=== PATIENT | male | born 1955 | race Caucasian/White ===

== ENCOUNTER 2020-01-09 18:59 | Inpatient (IN) ==
--- NOTE | 2020-01-09 19:13 | DR.GENAD ---
HPI - Complaint/Symptoms Chief Complaint Doctors Comments: Family member states patient was disorientated at home and did not know his grand childrens, his birthday nor the development vice president about an hour ago but he has gotten better since coming to the emergency room. Patient states he has had problems remembering but denies headache, dizziness, SOB or chest pain. Family member states his blood pressure has been elevated today and he has been taking his blood pressure medicines. He states he is taking Lisinopril. States he is a patient of Caitlin Dunn. He denies tobacco, alcohol or drug usage. He had stage 4 throat cancer in 2013 and now he is cancer free according to patient and family member. He denies any recent trauma. state he had breakfast today. He denies cold, cough, fever or chills. Patient denies problems with his balance. - COVID-19 Coronavirus risk:travel/contact w/high risk person: No Has patient experienced Coronavirus symptoms: No - Nurses notes reviewed Nurses Notes Review: Yes - Source History Provided: Patient, Family Member - Mode of Arrival Mode of Arrival: Wheelchair - Timing Came on: Suddenly - Duration Duration: Constant How lon Duration: Hours - Location Location: disorientate - Severity Severity: Moderate - Modifying Factors Worsens:: nothing Improves:: nothing PMH - PMH Past Medical History: Hypertension, Hypothyroidism Past Surgical History: Yes - Social History Do you use any recreational Drugs:: No ROS - Review of Systems Constitutional: No Symptoms Reported Eyes: No Symptoms Reported, Blurred Vision ENTM: No Symptoms Reported Respiratoy: No Symptoms Reported, Short of Breath Cardiovascular: No Symptoms Reported. negative: See HPI, Chest Pain, Edema, Palpitations, Syncope, Cyanosis, Skin Mottling, Other Gastrointestinal/Abdominal: No Symptoms Reported. negative: See HPI, Abdominal Pain, Constipation, Diarrhea, Nausea, Vomiting, Food Intolerance, Other Genitourinary: No Symptoms Reported. negative: See HPI, Discharge, Dysuria, Frequency, Hematuria, Pain, Bleeding, Other Neurological: No Symptoms Reported, Dizziness. negative: See HPI, Anxiety, Depressed, Emotional Problems, Headache, Numbness, Paresthesia, Pre-existing Deficit, Seizure, Tingling, Tremors, Weakness, Problems Walking, Speech Problem, Other Musculoskeletal: No Symptoms Reported Integumentary: No Symptoms Reported Hematologic/Lymphatic: No Symptoms Reported. negative: See HPI, Anemia, Blood Clots, Easy Bleeding, Easy Bruising, Swollen Glands, Lymphadenopathy, Other Endocrine: No Symptoms Reported Psychiatric: No Symptoms Reported. negative: See HPI, Anxiety, Depression, Hallucinations, Excessive crying, Suicidal, Other PE - General Limitations: No Limitations General Appearance: Alert, In No Apparent Distress - Head Head Exam: Normal Inspection, Atraumatic, Normocephalic - Eyes Eye exam: Normal Appearance, PERRL, EOMI. negative: Scleral Icterus, Conjunctival Injection, Nystagmus, Miosis, Mydrasis, Periorbital Swelling, Periorbital Tenderness, Other - ENT ENT Exam: Normal Exam, Normal Oropharynx, Normal External Ear Exam, Mucous Membranes Moist, TM's Normal Bilaterally External Ear Exam: Normal External Inspection TM/Canal Exam: Bilateral Normal Nose Exam: Normal Nose Exam Mouth Exam: Normal Inspection. negative: Drooling, Trismus, Lip Swelling, Tongue Elevation, Tongue Swelling, Laceration, Other Throat Exam: Normal Inspection. negative: Tonsillar Erythema, Tonsillomegaly, Tonsillar Exudate, R Peritonsillar Mass, L Peritonsillar Mass, Muffled Voice, O ther - Neck Neck Exam: Normal Inspection, Full ROM (multiple hard nodule in hyoid area; no erythema or tenderness), Trachea Midline. negative: Tenderness, Meningismus, Lymphadenopathy, Thyromegaly, Other - Chest Chest Inspection: Normal Inspection, Symmetric Chest Wall Rise. negative: Tenderness, Rash, Abscess, Other - Respiratory Respiratory Exam: Normal Lung Sounds Bilat Respiratory Exam: Bilateral Clear to Auscultation, Bilateral Decreased Breath So unds - Cardiovascular Cardiovascular Exam: Regular Rate, Normal Rhythm, Normal Heart Sounds - Abdominal Exam Abdominal Exam: Normal Inspection, Normal Bowel Sounds, Soft. negative: Distention, Tenderness, Guarding, Rebound, Rigidity, Dimnished Bowel Sounds, Hyperactive Bowel Sounds, Hypoactive Bowel Sounds, Organomegaly, Trauma, Incision, Ascites, Mass, Bruit, Pulsatile Mass, Hernia, Other Abdominal Tenderness: negative: RUQ, RLQ, LUQ, LLQ, Epigastrium, Suprapubic, Diffuse, Mild, Moderate, Severe, Other - Extremities Extremities Exam: Normal Inspection, Full ROM, Normal Capillary Refill. negative: Tenderness, Edema, Joint Swelling, Calf Tenderness, Other - Back Back Exam: Normal Inspection, Full ROM. negative: Tenderness, (R) CVA Tenderness, (L) CVA Tenderness, Muscle Spasm, Paraspinal Tenderness, Vertebral Tenderness, Rashes, (R) Sciatic Notch Tenderness, (L) Sciatic Notch Tendern, (R) Straight Leg Raise, (L) Straight Leg Raise, Other - Neurologic Neurological Exam: Alert, Oriented X3, CN II-XII Intact, Normal Gait, Reflexes Normal. negative: Motor Sensory Deficit (tongue protrudes to the left) - Psychiatric Psychiatric Exam: Normal Affect, Normal Mood. negative: Depressed, Agitated, Anxious, Flat Affect, Manic, Homicidal Ideation, Suicidal Ideation, Other - Skin Skin Exam: Warm, Dry, Intact, Normal Color. negative: Rash, Cyanosis, Diaphoresis, Erythema, Pallor, Mottled, Other - Vital Signs Vitals: Temperature 97.0 F Pulse Rate [Right] 62 Pulse Rate 55 Respiratory Rate 22 Blood Pressure [Left Arm] 212/98 Blood Pressure 150/70 O2 Sat by Pulse Oximetry 97 Course - Reevaluation 1st: Improved - Consultation Called: 00:48 Call Returned: 00:48 (Dr. Scott to admit) - Education/Counseling Education/Counseling: Patient, Family Educated On: Treatment, Diagnosis, Needs for Follow Up ROR - Labs Reviewed Laboratory Results Reviewed?: Yes (All labs and x-ray results reviewed and discussed with patient) Result Diagrams: 01/09/20 20:00 01/09/20 20:00 - XRAY XRAY Interpreted by: Radiologist (CT head: No acute intracranial abnormaity. Age related atropic changes and patchy areas of chronic small vessel ischemia are present in a periventriculaar white matter distribution.) - EKG Rate: 74 Jackson: Normal Rhythm: NSR Hypertrophy: LVH ST: Nonsp - Labs Reviewed Laboratory: WBC 7.4 X10^3/uL (3.6-10.0) 01/09/20 20:00 RBC 4.88 X10^6/uL (4.7-6.0) 01/09/20 20:00 Hgb 15.3 g/dL (13.5-18.0) 01/09/20 20:00 Hct 44.7 % (42.0-54.0) 01/09/20 20:00 MCV 91.5 fL (80.0-100.0) 01/09/20 20:00 MCH 31.3 pg (27.0-34.0) 01/09/20 20:00 MCHC 34.2 g/dL (33.0-35.0) 01/09/20 20:00 RDW 14.0 % (11.6-16.5) 01/09/20 20:00 Plt Count 214 X10^3/uL (150.0-450.0) 01/09/20 20:00 MPV 6.8 fL (7.4-11.0) L 01/09/20 20:00 Neut % (Auto) 84.4 % (42.0-75.0) H 01/09/20 20:00 Lymph % (Auto) 6.8 % (21.0-51.0) L 01/09/20 20:00 [place] % (Auto) 7.9 % (0.0-13.0) 01/09/20 20:00 Eos % (Auto) 0.7 % (0.9-2.9) L 01/09/20 20:00 Baso % (Auto) 0.2 % (0.2-1.0) 01/09/20 20:00 Neut # (Auto) 6.3 x10^3/uL (2.2-4.8) H 01/09/20 20:00 Lymph # (Auto) 0.5 X10^3/uL (1.3-2.9) L 01/09/20 20:00 [place] # (Auto) 0.6 x10^3/uL (0.3-0.8) 01/09/20 20:00 Eos # (Auto) 0.0 x10^3/uL (0.0-0.2) 01/09/20 20:00 Baso # (Auto) 0.0 X10^3/uL (0.0-0.1) 01/09/20 20:00 Absolute Nucleated RBC 0.0 /100WBC 01/09/20 20:00 PT 12.1 SECONDS (11.8-14.3) 01/09/20 20:00 INR Target Range - 01/09/20 20:00 INR 0.92 (0.8-1.3) 01/09/20 20:00 APTT 29.5 SECONDS (22.9-36.5) 01/09/20 20:00 PTT Comment - 01/09/20 20:00 Sodium 127 mmol/L (136-145) L 01/09/20 20:00 Corrected Sodium TNP 01/09/20 20:00 Potassium 4.3 mmol/L (3.5-5.1) 01/09/20 20:00 Chloride 92 mmol/L (98-107) L 01/09/20 20:00 Carbon Dioxide 30.6 mmol/L (21-32) 01/09/20 20:00 BUN 15 mg/dL (7-18) 01/09/20 20:00 Creatinine 1.46 mg/dL (0.70-1.30) H 01/09/20 20:00 Est GFR (MDRD) Af Amer > 60 (>60) 01/09/20 20:00 Est GFR (MDRD) Non-Af 51 (>60) L 01/09/20 20:00 Glucose 98 mg/dL (65-99) 01/09/20 20:00 Calcium 9.7 mg/dL (8.5-10.1) 01/09/20 20:00 Corrected Calcium TNP 01/09/20 20:00 Magnesium 1.9 mg/dL (1.7-2.9) 01/09/20 20:00 Total Bilirubin 0.40 mg/dL (0.2-1.0) 01/09/20 20:00 AST 24 Units/L (15-37) 01/09/20 20:00 ALT 27 Units/L (12-78) 01/09/20 20:00 Alkaline Phosphatase 66 Units/L (46-116) 01/09/20 20:00 Creatine Kinase 81 Units/L (39-308) 01/09/20 20:00 CK-MB (CK-2) 2.0 ng/mL (0-4.0) 01/09/20 20:00 CK/CKMB % Calc 2.5 % (<4) 01/09/20 20:00 Troponin I < 0.02 ng/mL (0-1.5) 01/09/20 20:00 Total Protein 7.9 g/dL (6.4-8.2) 01/09/20 20:00 Albumin 3.9 g/dL (3.4-5.0) 01/09/20 20: Globulin 4.0 g/dL (2.5-4.5) 01/09/20 20:00 Albumin/Globulin Ratio 1.0 Ratio (1.1-2.1) L 01/09/20 20:00 Specimen Type Clean catch urine 01/09/20 20:13 Urine Color Yellow (YELLOW) 01/09/20 20:13 Urine Appearance Clear (CLEAR) 01/09/20 20:13 Urine pH 7.0 (5.0 - 8.0) 01/09/20 20:13 Ur Specific [place] 1.010 (1.000-1.030) 01/09/20 20:13 Urine Protein Negative (NEGATIVE) 01/09/20 20:13 Urine Glucose (UA) Negative (NEGATIVE) 01/09/20 20: Urine Ketones Negative (NEGATIVE) 01/09/20 20: Urine Occult Blood Negative (NEGATIVE) 01/09/20 20:13 Urine Nitrite Negative (NEGATIVE) 01/09/20 20:13 Urine Bilirubin Negative (NEGATIVE) 01/09/20 20:13 Urine Urobilinogen Normal (NORMAL) 01/09/20 20:13 Ur Leukocyte Esterase Negative (NEGATIVE) 01/09/20 20:13 Urine Opiates Screen Negative (NEG=<300) 01/09/20 20:13 Urine Methadone Screen Negative (NEG=<300) 01/09/20 20:13 Ur Barbiturates Screen Negative (NEG=<200) 01/09/20 20:13 Ur Phencyclidine Scrn Negative (NEG=<25) 01/09/20 20:13 Ur Amphetamines Screen Negative (NEG=<1000) 01/09/20 20: U Benzodiazepines Scrn Negative (NEG=<200) 01/09/20 20:13 Urine Cocaine Screen Negative (NEG=<300) 01/09/20 20: U Marijuana (THC) Screen Negative (NEG=<50) 01/09/20 20: - XRAY Xray Findings: CXR: No evidence of acute cardiopulmonary abnormality. COPD. (ALEX NICHOLS) Opioid - Opioid Risk Tool Age (Tayo box if 16-45): No History of Preadolescent Sexual Abuse: No Total: 0 Total Score Risk Category: Low Risk - Diagnosis Discharge Problem: Hyponatremia, Accelerated hypertension, Chronic kidney disease (CKD), Abnormal EKG Altered mental status Qualifiers: Altered mental status type: transient alteration of awareness Qualified Code(s): R40.4 - Transient alteration of awareness COPD (chronic obstructive pulmonary disease) Qualifiers: COPD type: unspecified COPD Qualified Code(s): J44.9 - Chronic obstructive pulmonary disease, unspecified - Discharge Plan Disposition: 09 ADMITTED INPATIENT Condition: Stable - Follow ups/Referrals Follow ups/Referrals: NFD,None [Primary Care Provider] - 3 days - Instructions
[2020-01-09] MEDS ORDERED: CATAPRES TAB 0.2 MG ONE (19:30)
[2020-01-09] MEDS: CATAPRES TAB 0.2 MG PO ONE (19:30)
--- NOTE | 2020-01-09 20:06 | CT ---
[id number] male with altered mental statusSTUDYHead CT without contrastCOMPARISONNoneTECHNIQUEAxial imaging was performed from the vertex to the base of skull without intravenous contrast being administered. Sagittal and coronal reformations were generated. Automated exposure control techniques were used with this exam.FINDINGSGeneralized age related atrophic changes are present. However there is no evidence of intracranial hemorrhage or extracerebral fluid collections. Ventricles are symmetric in size and position with no mass effect seen. Patchy areas of low density are present in a periventricular white matter distribution, consistent with chronic small vessel ischemia. On the bone windows, no acute bony abnormality is seen. Visualized aspect of the paranasal sinuses and mastoid air cells are clear.IMPRESSION1. No acute intracranial abnormality is seen on this exam.2. Age related atrophic changes and patchy areas of chronic small vessel ischemia are present in a periventricular white matter distribution.Electronically signed by: LAURI OCHOA (Jan 09, 2020 20:05:52)
--- NOTE | 2020-01-09 20:10 | RAD ---
HISTORYCHEST PAIN, DISORIENTEDSTUDYCHEST, 1 VIEWCOMPARISONNone.FINDINGSThe trachea is midline. The cardiac silhouette is unremarkable. There appear to be some changes of COPD in both lungs. The lungs are clear of consolidation, focal infiltrate, effusion or pneumothorax. The bony thorax is unremarkable.IMPRESSION1. No evidence of acute cardiopulmonary abnormality.2. COPD.Electronically signed by: SID ROSALES (Jan 09, 2020 20:09:18)
[2020-01-09 20:17] LABS: BASOPHILS % (AUTO) 0.2 % (0.2-1.0); EOSINOPHILS % (AUTO) 0.7 % (0.9-2.9); HEMATOCRIT 44.7 % (42.0-54.0); HEMOGLOBIN 15.3 g/dL (13.5-18.0); LYMPHOCYTES # (AUTO) 0.5 X10^3/uL (1.3-2.9); LYMPHOCYTES % (AUTO) 6.8 % (21.0-51.0); MEAN CORPUSCULAR HEMOGLOBIN 31.3 pg (27.0-34.0); MEAN CORPUSCULAR HGB CONC 34.2 g/dL (33.0-35.0); MEAN CORPUSCULAR VOLUME 91.5 fL (80.0-100.0); MEAN PLATELET VOLUME 6.8 fL (7.4-11.0); MONOCYTES # (AUTO) 0.6 x10^3/uL (0.3-0.8); MONOCYTES % (AUTO) 7.9 % (0.0-13.0); NEUTROPHILS # (AUTO) 6.3 x10^3/uL (2.2-4.8); NEUTROPHILS % (AUTO) 84.4 % (42.0-75.0); PLATELET COUNT 214 X10^3/uL (150.0-450.0); RED BLOOD COUNT 4.88 X10^6/uL (4.7-6.0); WHITE BLOOD COUNT 7.4 X10^3/uL (3.6-10.0)
[2020-01-09 20:22] LABS: BILIRUBIN,URINE NEGATIVE (NEGATIVE); BLOOD/HEMOGLOBIN,URINE NEGATIVE (NEGATIVE); GLUCOSE, URINE NEGATIVE (NEGATIVE); KETONES,URINE NEGATIVE (NEGATIVE); LEUKOCYTE ESTERASE ,URINE NEGATIVE (NEGATIVE); NITRITES,URINE NEGATIVE (NEGATIVE); PROTEIN,URINE NEGATIVE (NEGATIVE); UROBILINOGEN,URINE NORMAL (NORMAL)
[2020-01-09 20:23] LABS: APPEARANCE,URINE CLEAR (CLEAR); COLOR,URINE YELLOW (YELLOW)
[2020-01-09 20:32] LABS: BLOOD UREA NITROGEN 15 mg/dL (7-18); CALCIUM 9.7 mg/dL (8.5-10.1); CARBON DIOXIDE 30.6 mmol/L (21-32); CHLORIDE 92 mmol/L (98-107); CREATININE 1.46 mg/dL (0.70-1.30); SODIUM 127 mmol/L (136-145); TROPONIN I < 0.02 ng/mL (0-1.5); eGFR NON BLACK RACES 51 (>60)
[2020-01-09 20:37] LABS: ALANINE AMINOTRANSFERASE 27 Units/L (12-78); ALBUMIN 3.9 g/dL (3.4-5.0); ALKALINE PHOSPHATASE 66 Units/L (46-116); ASPARTATE AMINO TRANSFERASE 24 Units/L (15-37); CKMB % 2.5 % (<4); CREATINE KINASE 81 Units/L (39-308); MAGNESIUM 1.9 mg/dL (1.7-2.9); TOTAL PROTEIN 7.9 g/dL (6.4-8.2)
[2020-01-09] MEDS ORDERED: LASIX ONE (20:38)
[2020-01-09] MEDS ORDERED: LASIX IVP ONE (20:46)
[2020-01-09] MEDS ORDERED: NS 1000 ML 1,000 ML ONE (21:11)
[2020-01-09] MEDS: NS 1000 ML 1,000 ML IV SCH (21:15)
[2020-01-10 01:47] LABS: CKMB % 2.6 % (<4); CREATINE KINASE 69 Units/L (39-308); CREATINE KINASE MB 1.8 ng/mL (0-4.0); TROPONIN I < 0.02 ng/mL (0-1.5)
[2020-01-10 03:37] VITALS: BMI 25.4
[2020-01-10 07:52] LABS: ALANINE AMINOTRANSFERASE 24 Units/L (12-78); ALBUMIN 3.2 g/dL (3.4-5.0); ALKALINE PHOSPHATASE 54 Units/L (46-116); ASPARTATE AMINO TRANSFERASE 20 Units/L (15-37); BLOOD UREA NITROGEN 15 mg/dL (7-18); CALCIUM 8.9 mg/dL (8.5-10.1); CARBON DIOXIDE 26.4 mmol/L (21-32); CHLORIDE 96 mmol/L (98-107); CHOL/HDL RATIO 3.3 (0.0-5.0); CHOLESTEROL 209 mg/dL (0-200); CKMB % 2.8 % (<4); COR CA(FOR HYPOALB) 9.5 mg/dL (8.5-10.1); CREATINE KINASE 76 Units/L (39-308); CREATINE KINASE MB 2.1 ng/mL (0-4.0); CREATININE 1.29 mg/dL (0.70-1.30); HDL CHOLESTEROL 63 mg/dL (40-60); SODIUM 130 mmol/L (136-145); TOTAL PROTEIN 6.8 g/dL (6.4-8.2); TRIGLYCERIDES 84 mg/dL (0-150); TROPONIN I < 0.02 ng/mL (0-1.5); eGFR NON BLACK RACES 59 (>60)
[2020-01-10] MEDS ORDERED: ZESTRIL TAB 20 MG ONE (08:16)
[2020-01-10] MEDS: ELIQUIS PO SCH ×2 (08:25→20:06)
[2020-01-10] MEDS: PEPCID 20 MG IV PREMIX* 20 MG/50 ML BAG IV SCH (08:25)
[2020-01-10] MEDS: ZESTRIL TAB 20 MG PO SCH (08:26)
[2020-01-10] MEDS: NS 1000 ML 1,000 ML IV SCH (11:11)
[2020-01-10 13:36] LABS: CKMB % 2.1 % (<4); CREATINE KINASE 76 Units/L (39-308); CREATINE KINASE MB 1.6 ng/mL (0-4.0); TROPONIN I < 0.02 ng/mL (0-1.5)
--- NOTE | 2020-01-10 22:05 | DR.H&P ---
H&P - History & Physical for Day of: H&P Date: 01/10/20 - Chief Complaint Chief Complaint: AMS, ELEVATED BLOOD PRESSURE - History of Present Illness History of Present Illness: IS A 64 YEAR OLD PATIENT OF [facility] WHO PRESENTED TO THE ER WITH FAMILY REPORTING THAT PATIENT HAS HAD ALTERED MENTAL STATUS AND ELEVATED BLOOD PRESSURE. THEY REPORT THAT HE HAS TAKEN HIS LISINOPRIL DIRECTED, HOWEVER, BLOOD PRESSURE REMAINS ELEVATED. HE DENIES RECENT TRAUMA, COLD, COUGH, FEVER, CHILLS, DIZZINESS, HEADACHE, CHEST PAIN, OR SHORTNESS OF BREATH. PMH INCLUDES HYPERTENSION, COPD, HYPOTHYROIDISM, A-FIB, STAGE THROAT CANCER IN 2012, AND A TONSILLECTOMY. ON ARRIVAL TO THE ER, VITALS WERE 97.0-76-20-100%-222/105. LABS WERE OBTAINED. ABNORMAL LAB VALUES INCLUDE THE FOLLOWING: SODIUM 127, CHLORIDE 92, CREATININE 1.46. CARDIAC ENZYMES WITHIN NORMAL LEVELS. URINALYSIS AND TOXICOLOGY ARE UNREMARKABLE. A CHEST XRAY WAS OBTAINED AND REVEALED: 1. No evidence of acute cardiopulmonary abnormality. 2. COPD. A BRAIN CT WAS OBTAINED AND REVEALED: 1. No acute intracranial abnormality is seen on this exam. 2. Age related atrophic changes and patchy areas of chronic small vessel ischemia are present in a periventricular white matter distribution. EKG REVEALED: SINUS RHYTHM WITH HR 74. HE WAS GIVEN LASIX 20MG IV X 1 DOSE AND CATAPRES 0.2MG PO X 1 IN THE ER. BLOOD PRESSURE DECREASED TO 131/70 PRIOR TO ADMISSION. HE WAS ADMITTED FOR FURTHER EVALUATION AND TREATMENT OF SEVERE HYPONATREMIA, ACCELERATED HYPERTENSION, AND ALTERED MENTAL STATUS. HE WAS STARTED ON NORMAL SALINE AT 80 ML/HR, LISINOPRIL 20MG PO DAILY, PEPCID 20MG IV DAILY, AND ELIQUIS 5MG PO BID. WE WILL CONTINUE WITH CURRENT PLAN OF CARE TODAY. OTHERWISE, WE PLAN TO FOLLOW UP WITH AM LABS AND CONTINUE TO MONITOR. - Past Medical History Past Medical History: COPD, Hypertension, Hypothyroidism Additional Medical History: A-FIB, THROAT CANCER - Past Surgical History Surgical History: Tonsillectomy - Social History Does patient currently use any type of tobacco product: No Have you used tobacco products in the last 12 months: No Type of Tobacco Use: None Does any household member use tobacco: No Alcohol Use: None Drug Use: None - Medications Home Medications: No Known Drug Allergies Allergy (Verified 10/09/19 20:04) CONTINUE taking the following medications apixaban [Eliquis] 5 mg PO BID 01/09/20 [History] levothyroxine 50 mcg PO DAILY 01/09/20 [History] lisinopril [Zestril] 10 mg PO DAILY 01/09/20 [History] - Review of Systems Constitutional: Weakness Eyes: No Symptoms Reported ENT: No Symptoms Reported Respiratory: No Symptoms Reported Cardiovascular: No Symptoms Reported Genitourinary: No Symptoms Reported Musculoskeletal: No Symptoms Reported Skin: No Symptoms Reported Neurological: Weakness, Confusion - Physical Exam Vital Signs: Temperature 97.8 F Pulse Rate [Right] 53 Pulse Rate 55 Respiratory Rate 18 Blood Pressure [Right Arm] 111/59 Blood Pressure [Left Arm] 212/98 Blood Pressure 150/70 O2 Sat by Pulse Oximetry 99 Oriented: Not Oriented Eyes: Normal Ear: Normal Nose: Normal Throat: Normal Respiratory: Diminished Throughout Cardiovascular: Normal : Normal Auscultation: Bowel Sounds: Normal Palpation: Normal Tenderness: Normal Skin: Normal Musculoskeletal: Normal Psychiatric: Normal Mood Description: Calm Affect: Normal Speech Pattern: Clear - Assessment/Plan (1) Hyponatremia Status: Acute Plan: ADMIT, NORMAL SALINE AT 80 ML/HR, LISINOPRIL 20MG PO DAILY, PEPCID 20MG IV DAILY, AND ELIQUIS 5MG PO BID (2) Accelerated hypertension Status: Acute (3) Altered mental status Qualifiers: Altered mental status type: transient alteration of awareness Qualified Code(s): R40.4 - Transient alteration of awareness Status: Acute - Allergies Allergies/Adverse Reactions: Allergies Allergy/AdvReac Type Severity Reaction Status Date / Time No Known Drug Allergies Allergy Verified 10/09/19 20:04
[2020-01-11] MEDS: NS 1000 ML 1,000 ML IV SCH (00:33)
[2020-01-11 06:02] LABS: BASOPHILS % (AUTO) 0.2 % (0.2-1.0); EOSINOPHILS # (AUTO) 0.1 x10^3/uL (0.0-0.2); EOSINOPHILS % (AUTO) 1.5 % (0.9-2.9); HEMATOCRIT 42.4 % (42.0-54.0); HEMOGLOBIN 14.5 g/dL (13.5-18.0); LYMPHOCYTES # (AUTO) 0.5 X10^3/uL (1.3-2.9); LYMPHOCYTES % (AUTO) 9.3 % (21.0-51.0); MEAN CORPUSCULAR HEMOGLOBIN 31.3 pg (27.0-34.0); MEAN CORPUSCULAR HGB CONC 34.1 g/dL (33.0-35.0); MEAN CORPUSCULAR VOLUME 91.7 fL (80.0-100.0); MONOCYTES # (AUTO) 0.5 x10^3/uL (0.3-0.8); MONOCYTES % (AUTO) 8.4 % (0.0-13.0); NEUTROPHILS # (AUTO) 4.6 x10^3/uL (2.2-4.8); NEUTROPHILS % (AUTO) 80.6 % (42.0-75.0); PLATELET COUNT 189 X10^3/uL (150.0-450.0); RED BLOOD COUNT 4.62 X10^6/uL (4.7-6.0); RED CELL DISTRIBUTION WIDTH 13.7 % (11.6-16.5); WHITE BLOOD COUNT 5.7 X10^3/uL (3.6-10.0)
[2020-01-11 06:15] LABS: ALANINE AMINOTRANSFERASE 22 Units/L (12-78); ALBUMIN 3.3 g/dL (3.4-5.0); ALKALINE PHOSPHATASE 56 Units/L (46-116); ASPARTATE AMINO TRANSFERASE 22 Units/L (15-37); BLOOD UREA NITROGEN 16 mg/dL (7-18); CALCIUM 9.2 mg/dL (8.5-10.1); CARBON DIOXIDE 27.1 mmol/L (21-32); CHLORIDE 101 mmol/L (98-107); COR CA(FOR HYPOALB) 9.8 mg/dL (8.5-10.1); SODIUM 133 mmol/L (136-145); eGFR NON BLACK RACES 59 (>60)
[2020-01-11] MEDS ORDERED: ZESTRIL TAB 20 MG ONE (08:43)
[2020-01-11] MEDS: ELIQUIS PO SCH (08:45)
[2020-01-11] MEDS: PEPCID 20 MG IV PREMIX* 20 MG/50 ML BAG IV SCH (08:45)
[2020-01-11] MEDS: ZESTRIL TAB 20 MG PO SCH (08:46)
[2020-01-11 09:23] VITALS: BP 189/82
[2020-01-11] MEDS ORDERED: CATAPRES TAB 0.2 MG PO ONE (10:25)
[2020-01-11] MEDS ORDERED: CATAPRES TAB 0.2 MG ONE (10:30)
== END 2020-01-11 11:40 | disposition home or self-care (01) | DRG 641 ==
LOC: ER 19:07 → MED/SURG 01-10 00:52
PROVIDERS: ADMIT Internal Medicine; ATTEND Internal Medicine
DX: E03.8 Other specified hypothyroidism; N18.9 Chronic kidney disease, unspecified; E87.1 Hypo-osmolality and hyponatremia; R94.31 Abnormal electrocardiogram [ECG] [EKG]; I10 Essential (primary) hypertension; J44.9 Chronic obstructive pulmonary disease, unspecified; R40.4 Transient alteration of awareness
CPT/HCPCS: 36415; 70450; 71010; 71045; 80053; 80061; 80307; 81003; 82550; 82553; 83735; 84484; 85025; 85610; 85730; 93005; 94760; 96365; 96367; 96374; 99284; A4216; A4222; J1940; J7030; S0028

== ENCOUNTER 2020-06-08 14:10 | Inpatient (IN) ==
--- NOTE | 2020-06-08 14:37 | DR.NOSEBLE ---
HPI Time Seen Time Seen by Provider: 06/08/20 14:22 Primary Care Physician Primary Care Physician: ZEB BEE PA-C HPI Comment HPI Comment: PATIENT IS 64YR OLD MALE IN ER WITH NOSE BLEED SINCE 07AM TODAY. JUST BLEW HIS NOSE AND STARTED BLEEDING. ON ASPIRIN AND COUMADIN. HAD HEART SURGERY Complaints Chief Complaint Doctors Comments: NOSE BLEED, ON COUMADIN AND ASPRIN. Chief Complaint:: PT C/O SUDDEN ONSET OF SEVERE NOSEBLEED SINCE 7AM THIS MORINING. COVID-19 Coronavirus risk:travel/contact w/high risk person: No Has patient experienced Coronavirus symptoms: No Reviewed Nurses Notes Reviewed: Yes Source History Provided: Patient Mode of Arrival Mode of Arrival: Ambulatory Timing Onset of Chief Complaint: 06/08/20 Associated Signs and Symptoms Associated Signs and Symptoms: None PMH PMH Past Medical History: Yes Past Medical History: Coronary Artery Disease and Hypertension Past Medical History Comment: THROAT CANCER Past Surgical History: Yes Surgical History: CABG/Valve Surgery Past Surgical History Comment: PEG TUBE PLACEMENT Family History History of Family Medical Conditions: Yes Family Medical History: [place] and Coronary Artery Disease Social History Does patient currently use any type of tobacco product: No Have you used tobacco products in the last 12 months: No Type of Tobacco Use: None Does any household member use tobacco: No Alcohol Use: None Do you use any recreational Drugs:: No Lives With: Family Lives Where: Home Infectious screening In the last 2 months have you had wt loss of >10#?: NO Have you had fever, night sweats or hemotysis?: No Have you traveled outside the country in the last 6 months?: No Isolation: Standard ROS Review of Systems Constitutional: See HPI Eyes: See HPI ENTM: See HPI Respiratoy: See HPI Cardiovascular: See HPI Gastrointestinal/Abdominal: See HPI Genitourinary: See HPI Neurological: See HPI Musculoskeletal: See HPI Integumentary: See HPI Hematologic/Lymphatic: See HPI Endocrine: See HPI Psychiatric: See HPI PE Vital Signs Vitals: Temperature 96.9 F Pulse Rate 64 Respiratory Rate 15 Blood Pressure [Right Arm] 189/82 Blood Pressure 139/76 O2 Sat by Pulse Oximetry 85 General Limitations: No Limitations General Appearance: Alert and In No Apparent Distress Head Head Exam: Normal Inspection Eyes Eye exam: Normal Appearance Eyelids: Normal Inspection: Bilateral Pupils: Regular, Round: Bilateral Sclera/Conjunctival: Normal Inspection: Bilateral Anterior chamber: Normal inspection: Bilateral Posterior Chamber: Normal Inspection: Bilateral ENT ENT Exam: Normal Exam External Ear Exam: Normal External Inspection TM/Canal Exam: Bilateral: Normal Nose Exam: Normal Nose Exam Nasal Speculum Exam: Bilateral: Normal Mouth Exam: Normal Inspection Throat Exam: Normal Inspection Neck Neck Exam: Normal Inspection Chest Chest Inspection: Normal Inspection Respiratory Respiratory Exam: Normal Lung Sounds Bilat Respiratory Exam: Bilateral: Clear to Auscultation Cardiovascular Cardiovascular Exam: Regular Rate and Normal Rhythm Abdominal Exam Abdominal Exam: Normal Inspection, Normal Bowel Sounds and Soft Extremities Extremities Exam: Normal Inspection Back Back Exam: Normal Inspection Neurologic Neurological Exam: Alert and Oriented X3 Psychiatric Psychiatric Exam: Normal Affect and Normal Mood Skin Skin Exam: Warm, Dry, Intact and Normal Color ROR Labs Reviewed Result Diagrams: 06/08/20 14:45 06/08/20 14:45 Laboratory: WBC 6.4 X10^3/uL (3.6-10.0) 06/08/20 14:45 RBC 3.45 X10^6/uL (4.7-6.0) L 06/08/20 14:45 Hgb 10.2 g/dL (13.5-18.0) L 06/08/20 14:45 Hct 30.8 % (42.0-54.0) L 06/08/20 14:45 MCV 89.5 fL (80.0-100.0) 06/08/20 14:45 MCH 29.6 pg (27.0-34.0) 06/08/20 14:45 MCHC 33.1 g/dL (33.0-35.0) 06/08/20 14:45 RDW 13.9 % (11.6-16.5) 06/08/20 14:45 Plt Count 561 X10^3/uL (150.0-450.0) H 06/08/20 14:45 MPV 7.4 fL (7.4-11.0) 06/08/20 14:45 Neut % (Auto) 76.2 % (42.0-75.0) H 06/08/20 14:45 Lymph % (Auto) 10.0 % (21.0-51.0) L 06/08/20 14:45 [place] % (Auto) 10.1 % (0.0-13.0) 06/08/20 14:45 Eos % (Auto) 3.2 % (0.9-2.9) H 06/08/20 14:45 Baso % (Auto) 0.5 % (0.2-1.0) 06/08/20 14:45 Neut # (Auto) 4.9 x10^3/uL (2.2-4.8) H 06/08/20 14:45 Lymph # (Auto) 0.6 X10^3/uL (1.3-2.9) L 06/08/20 14:45 [place] # (Auto) 0.7 x10^3/uL (0.3-0.8) 06/08/20 14:45 Eos # (Auto) 0.2 x10^3/uL (0.0-0.2) 06/08/20 14:45 Baso # (Auto) 0.0 X10^3/uL (0.0-0.1) 06/08/20 14:45 Absolute Nucleated RBC 0.0 /100WBC 06/08/20 14:45 PT 125.7 SECONDS (11.8-14.3) 06/08/20 14:45 INR Target Range - 06/08/20 14:45 INR 18.86 (0.8-1.3) H* 06/08/20 14:45 APTT 97.1 SECONDS (22.9-36.5) H 06/08/20 14:45 PTT Comment - 06/08/20 14:45 Sodium 131 mmol/L (136-145) L 06/08/20 14:45 Corrected Sodium TNP 06/08/20 14:45 Potassium 4.6 mmol/L (3.5-5.1) 06/08/20 14:45 Chloride 95 mmol/L (98-107) L 06/08/20 14:45 Carbon Dioxide 29.5 mmol/L (21-32) 06/08/20 14:45 BUN 32 mg/dL (7-18) H 06/08/20 14:45 Creatinine 1.62 mg/dL (0.70-1.30) H 06/08/20 14:45 Est GFR (MDRD) Af Amer 55 (>60) L 06/08/20 14:45 Est GFR (MDRD) Non-Af 46 (>60) L 06/08/20 14:45 Glucose 101 mg/dL (65-99) H 06/08/20 14:45 Calcium 9.2 mg/dL (8.5-10.1) 06/08/20 14:45 Corrected Calcium 10.5 mg/dL (8.5-10.1) H 06/08/20 14:45 Total Bilirubin 0.20 mg/dL (0.2-1.0) 06/08/20 14:45 AST 43 Units/L (15-37) H 06/08/20 14:45 ALT 65 Units/L (12-78) 06/08/20 14:45 Alkaline Phosphatase 84 Units/L (46-116) 06/08/20 14:45 Total Protein 7.8 g/dL (6.4-8.2) 06/08/20 14:45 Albumin 2.4 g/dL (3.4-5.0) L 06/08/20 14:45 Globulin 5.4 g/dL (2.5-4.5) H 06/08/20 14:45 Albumin/Globulin Ratio 0.4 Ratio (1.1-2.1) L 06/08/20 14:45 Stool Description Fob tube 06/08/20 17:20 Stl Occult Blood (IFOB) Positive (NEGATIVE) A 06/08/20 17:20 Blood Type A POSITIVE 06/08/20 16:54 Antibody Screen Negative 06/08/20 16:54 Opioid Opioid Risk Tool Age (Tayo box if 16-45): No History of Preadolescent Sexual Abuse: No Total: 0 Total Score Risk Category: Low Risk Copyright: Magdi GORDON predicting aberrant behaviors Diagnosis Discharge Problem: Coagulopathy Instructions Forms: Precautions for COVID19 Patient Portal Social Distancing
[2020-06-08] MEDS ORDERED: NS 1000 ML 1,000 ML ONE (14:39)
[2020-06-08] MEDS ORDERED: NS 1000 ML 1,000 ML IV ONE (14:46)
[2020-06-08 14:58] LABS: BASOPHILS % (AUTO) 0.5 % (0.2-1.0); EOSINOPHILS # (AUTO) 0.2 x10^3/uL (0.0-0.2); EOSINOPHILS % (AUTO) 3.2 % (0.9-2.9); HEMATOCRIT 30.8 % (42.0-54.0); HEMOGLOBIN 10.2 g/dL (13.5-18.0); LYMPHOCYTES # (AUTO) 0.6 X10^3/uL (1.3-2.9); MEAN CORPUSCULAR HEMOGLOBIN 29.6 pg (27.0-34.0); MEAN CORPUSCULAR HGB CONC 33.1 g/dL (33.0-35.0); MEAN CORPUSCULAR VOLUME 89.5 fL (80.0-100.0); MEAN PLATELET VOLUME 7.4 fL (7.4-11.0); MONOCYTES # (AUTO) 0.7 x10^3/uL (0.3-0.8); MONOCYTES % (AUTO) 10.1 % (0.0-13.0); NEUTROPHILS # (AUTO) 4.9 x10^3/uL (2.2-4.8); NEUTROPHILS % (AUTO) 76.2 % (42.0-75.0); PLATELET COUNT 561 X10^3/uL (150.0-450.0); RED BLOOD COUNT 3.45 X10^6/uL (4.7-6.0); RED CELL DISTRIBUTION WIDTH 13.9 % (11.6-16.5); WHITE BLOOD COUNT 6.4 X10^3/uL (3.6-10.0)
[2020-06-08 15:10] LABS: ALANINE AMINOTRANSFERASE 65 Units/L (12-78); ALBUMIN 2.4 g/dL (3.4-5.0); ALKALINE PHOSPHATASE 84 Units/L (46-116); ASPARTATE AMINO TRANSFERASE 43 Units/L (15-37); BLOOD UREA NITROGEN 32 mg/dL (7-18); CALCIUM 9.2 mg/dL (8.5-10.1); CARBON DIOXIDE 29.5 mmol/L (21-32); CHLORIDE 95 mmol/L (98-107); COR CA(FOR HYPOALB) 10.5 mg/dL (8.5-10.1); CREATININE 1.62 mg/dL (0.70-1.30); SODIUM 131 mmol/L (136-145); TOTAL PROTEIN 7.8 g/dL (6.4-8.2); eGFR NON BLACK RACES 46 (>60)
[2020-06-08] MEDS ORDERED: AQUA-MEPHYTON ADULT INJ SC ONE (16:37)
[2020-06-08 18:45] LABS: BILIRUBIN,URINE NEGATIVE (NEGATIVE); BLOOD/HEMOGLOBIN,URINE NEGATIVE (NEGATIVE); GLUCOSE, URINE NEGATIVE (NEGATIVE); KETONES,URINE NEGATIVE (NEGATIVE); LEUKOCYTE ESTERASE ,URINE NEGATIVE (NEGATIVE); NITRITES,URINE NEGATIVE (NEGATIVE); PROTEIN,URINE NEGATIVE (NEGATIVE); UROBILINOGEN,URINE NORMAL (NORMAL)
[2020-06-08 18:47] LABS: APPEARANCE,URINE CLEAR (CLEAR); COLOR,URINE STRAW (YELLOW)
[2020-06-08] MEDS ORDERED: LASIX PO SCH (21:00)
[2020-06-08] MEDS: PROTONIX INJ 40 MG VIAL IVP SCH (21:00)
[2020-06-08] MEDS: LOPRESSOR TAB 25 MG PO SCH (21:30)
[2020-06-08 21:53] LABS: HEMATOCRIT 31.7 % (42.0-54.0); HEMOGLOBIN 10.6 g/dL (13.5-18.0)
[2020-06-08] MEDS: LIPITOR TAB 10 MG PO SCH (22:32)
[2020-06-08] MEDS: ULTRAM PO PRN (22:33)
[2020-06-08 23:38] VITALS: BMI 23.8
[2020-06-09 05:17] LABS: BASOPHILS % (AUTO) 0.5 % (0.2-1.0); EOSINOPHILS # (AUTO) 0.3 x10^3/uL (0.0-0.2); EOSINOPHILS % (AUTO) 3.8 % (0.9-2.9); HEMATOCRIT 28.2 % (42.0-54.0); HEMOGLOBIN 9.5 g/dL (13.5-18.0); LYMPHOCYTES # (AUTO) 0.7 X10^3/uL (1.3-2.9); LYMPHOCYTES % (AUTO) 8.6 % (21.0-51.0); MEAN CORPUSCULAR HEMOGLOBIN 29.9 pg (27.0-34.0); MEAN CORPUSCULAR HGB CONC 33.7 g/dL (33.0-35.0); MEAN CORPUSCULAR VOLUME 88.8 fL (80.0-100.0); MEAN PLATELET VOLUME 7.7 fL (7.4-11.0); MONOCYTES # (AUTO) 0.7 x10^3/uL (0.3-0.8); MONOCYTES % (AUTO) 8.8 % (0.0-13.0); NEUTROPHILS % (AUTO) 78.3 % (42.0-75.0); PLATELET COUNT 521 X10^3/uL (150.0-450.0); RED BLOOD COUNT 3.18 X10^6/uL (4.7-6.0); RED CELL DISTRIBUTION WIDTH 13.8 % (11.6-16.5); WHITE BLOOD COUNT 7.6 X10^3/uL (3.6-10.0)
[2020-06-09 05:35] LABS: ALANINE AMINOTRANSFERASE 58 Units/L (12-78); ALBUMIN 2.4 g/dL (3.4-5.0); ALKALINE PHOSPHATASE 82 Units/L (46-116); ASPARTATE AMINO TRANSFERASE 43 Units/L (15-37); BLOOD UREA NITROGEN 31 mg/dL (7-18); CALCIUM 9.3 mg/dL (8.5-10.1); CARBON DIOXIDE 29.3 mmol/L (21-32); CHLORIDE 96 mmol/L (98-107); COR CA(FOR HYPOALB) 10.6 mg/dL (8.5-10.1); COR NA(FOR HYPERGLY) 131 mmol/L (136-145); CREATININE 1.36 mg/dL (0.70-1.30); MAGNESIUM 2.2 mg/dL (1.7-2.9); SODIUM 131 mmol/L (136-145); TOTAL PROTEIN 7.5 g/dL (6.4-8.2); eGFR NON BLACK RACES 56 (>60)
[2020-06-09 06:02] LABS: BILIRUBIN,URINE NEGATIVE (NEGATIVE); BLOOD/HEMOGLOBIN,URINE NEGATIVE (NEGATIVE); GLUCOSE, URINE NEGATIVE (NEGATIVE); KETONES,URINE NEGATIVE (NEGATIVE); LEUKOCYTE ESTERASE ,URINE NEGATIVE (NEGATIVE); NITRITES,URINE NEGATIVE (NEGATIVE); PROTEIN,URINE NEGATIVE (NEGATIVE); UROBILINOGEN,URINE NORMAL (NORMAL)
[2020-06-09 06:11] LABS: APPEARANCE,URINE HAZY (CLEAR); COLOR,URINE YELLOW (YELLOW)
[2020-06-09] MEDS ORDERED: ZESTRIL TAB 20 MG PO SCH (09:00)
[2020-06-09] MEDS: SYNTHROID 50 mcg TAB PO SCH (09:09)
[2020-06-09] MEDS: CORDARONE TAB 200 MG PO SCH (09:09)
[2020-06-09] MEDS: PROTONIX INJ 40 MG VIAL IVP SCH ×2 (09:10→20:44)
[2020-06-09] MEDS: LOPRESSOR TAB 25 MG PO SCH ×2 (09:10→20:44)
--- NOTE | 2020-06-09 09:36 | DR.H&P ---
H&P History & Physical for Day of: H&P Date: 06/09/20 Chief Complaint Chief Complaint: nose bleed Allergies Allergies Allergy/AdvReac Type Severity Reaction Status Date / Time No Known Drug Allergies Allergy Verified 06/08/20 16:03 History of Present Illness History of Present Illness: Mr. Villalta is a 64y/o male with a recent hx of CABG and heart valve repair, HTN, HLD, Atrial fibrillation and throat cancer. Patient had CABG and valve repair with 2 mechanical valved at [facility] 3 weeks ago. He was taking Eliquis prior to surgery and was switched to warfarin. He was initially started on 5 mg and then increased to 7.5 mg last week. Patient states his INR on saturday was 2.0. He noticed nose bleed yesterday morning and came to the ED. He states taking diflucan last week and then another dose on saturday for oral thrush. He has a hx of throat cancer s/p radiaton and is not able to swallow properly. In [place], they were concerned about his aspirating so PEG tube was placed last week. Patient states his swallowing is better and he can eat soft foods and using PEG for protein supplements. He denies any other bleeding, no melena or hemoptysis. Denies fever or chills, no chest pain. ED work-up - Labs: INR: 18 Hgb 10.2 Creat: 1.62 UA (-) for blood FOBT (+) Patient's nose bleed was controlled with cotton in his nose. No other active bleeding was noted. Patient received one unit of FFP overnight, repeat INR was 5 and this morning it is 7.34. His hgb is 9.5. His renal function has improved with hydration on admission. Plan: repeat INR at 12 pm, hold off on any further FFPs for now, goal is to keep INR > 2 due to recent mechanical valves placement. Monitor bleeding. Hold lasix and lisinopril due to RHONDA and hyperkalemia. Will obtain records from [facility]. Past Medical History Past Medical History: Coronary Artery Disease, Hypertension and Sleep Apnea Additional Medical History: A-FIB, THROAT CANCER Past Surgical History Surgical History: Abdominal Surgery, Angioplasty/Stents, CABG/Valve Surgery, Hys terectomy and Tonsillectomy Family History Family Medical History: SC and Coronary Artery Disease Social History Does patient currently use any type of tobacco product: No Have you used tobacco products in the last 12 months: No Type of Tobacco Use: None Does any household member use tobacco: No Alcohol Use: None Drug Use: None Prescription drug monitoring program results: PDMP reviewed and no concerns identified Medications Home Medications: No Known Drug Allergies Allergy (Verified 06/08/20 16:03) CONTINUE taking the following medications amiodarone [Pacerone] 200 mg PO DAILY 06/08/20 [History] aspirin 81 mg PO DAILY 06/08/20 [History] atorvastatin 10 mg PO HS 06/08/20 [History] furosemide 40 mg PO BID 06/08/20 [History] levothyroxine 50 mcg PO DAILY 06/08/20 [History] lisinopril 20 mg PO DAILY 06/08/20 [History] metoprolol tartrate 25 mg PO BID 06/08/20 [History] tramadol 100 mg PO Q8H PRN 06/08/20 [History] warfarin 5 mg PO DAILY 06/08/20 [History] Labs Result Diagrams: 06/09/20 04:20 06/09/20 04:20 Labs: Laboratory WBC 7.6 X10^3/uL (3.6-10.0) 06/09/20 04:20 RBC 3.18 X10^6/uL (4.7-6.0) L 06/09/20 04:20 Hgb 9.5 g/dL (13.5-18.0) L 06/09/20 04:20 Hct 28.2 % (42.0-54.0) L 06/09/20 04:20 MCV 88.8 fL (80.0-100.0) 06/09/20 04:20 MCH 29.9 pg (27.0-34.0) 06/09/20 04:20 MCHC 33.7 g/dL (33.0-35.0) 06/09/20 04:20 RDW 13.8 % (11.6-16.5) 06/09/20 04:20 Plt Count 521 X10^3/uL (150.0-450.0) H 06/09/20 04:20 MPV 7.7 fL (7.4-11.0) 06/09/20 04:20 Neut % (Auto) 78.3 % (42.0-75.0) H 06/09/20 04:20 Lymph % (Auto) 8.6 % (21.0-51.0) L 06/09/20 04:20 [place] % (Auto) 8.8 % (0.0-13.0) 06/09/20 04:20 Eos % (Auto) 3.8 % (0.9-2.9) H 06/09/20 04:20 Baso % (Auto) 0.5 % (0.2-1.0) 06/09/20 04:20 Neut # (Auto) 6.0 x10^3/uL (2.2-4.8) H 06/09/20 04:20 Lymph # (Auto) 0.7 X10^3/uL (1.3-2.9) L 06/09/20 04:20 [place] # (Auto) 0.7 x10^3/uL (0.3-0.8) 06/09/20 04:20 Eos # (Auto) 0.3 x10^3/uL (0.0-0.2) H 06/09/20 04:20 Baso # (Auto) 0.0 X10^3/uL (0.0-0.1) 06/09/20 04:20 Absolute Nucleated RBC 0.0 /100WBC 06/09/20 04:20 PT 60.5 SECONDS (11.8-14.3) 06/09/20 04:20 INR Target Range - 06/09/20 04:20 INR 7.34 (0.8-1.3) H* 06/09/20 04:20 APTT 69.5 SECONDS (22.9-36.5) H 06/09/20 04:20 PTT Comment - 06/09/20 04:20 Sodium 131 mmol/L (136-145) L 06/09/20 04:20 Corrected Sodium 131 mmol/L (136-145) L 06/09/20 04:20 Potassium 5.0 mmol/L (3.5-5.1) 06/09/20 04:20 Chloride 96 mmol/L (98-107) L 06/09/20 04:20 Carbon Dioxide 29.3 mmol/L (21-32) 06/09/20 04:20 BUN 31 mg/dL (7-18) H 06/09/20 04:20 Creatinine 1.36 mg/dL (0.70-1.30) H 06/09/20 04:20 Est GFR (MDRD) Af Amer > 60 (>60) 06/09/20 04:20 Est GFR (MDRD) Non-Af 56 (>60) L 06/09/20 04:20 Glucose 118 mg/dL (65-99) H 06/09/20 04:20 Calcium 9.3 mg/dL (8.5-10.1) 06/09/20 04:20 Corrected Calcium 10.6 mg/dL (8.5-10.1) H 06/09/20 04:20 Magnesium 2.2 mg/dL (1.7-2.9) 06/09/20 04:20 Total Bilirubin 0.30 mg/dL (0.2-1.0) 06/09/20 04:20 AST 43 Units/L (15-37) H 06/09/20 04:20 ALT 58 Units/L (12-78) 06/09/20 04:20 Alkaline Phosphatase 82 Units/L (46-116) 06/09/20 04:20 Total Protein 7.5 g/dL (6.4-8.2) 06/09/20 04:20 Albumin 2.4 g/dL (3.4-5.0) L 06/09/20 04:20 Globulin 5.1 g/dL (2.5-4.5) H 06/09/20 04:20 Albumin/Globulin Ratio 0.5 Ratio (1.1-2.1) L 06/09/20 04:20 Specimen Type Clean catch urine 06/09/20 04:40 Urine Color Yellow (YELLOW) 06/09/20 04:40 Urine Appearance Hazy (CLEAR) 06/09/20 04:40 Urine pH 8.0 (5.0 - 8.0) 06/09/20 04:40 Ur Specific [place] 1.015 (1.000-1.030) 06/09/20 04:40 Urine Protein Negative (NEGATIVE) 06/09/20 04:40 Urine Glucose (UA) Negative (NEGATIVE) 06/09/20 04:40 Urine Ketones Negative (NEGATIVE) 06/09/20 04:40 Urine Occult Blood Negative (NEGATIVE) 06/09/20 04:40 Urine Nitrite Negative (NEGATIVE) 06/09/20 04:40 Urine Bilirubin Negative (NEGATIVE) 06/09/20 04:40 Urine Urobilinogen Normal (NORMAL) 06/09/20 04:40 Ur Leukocyte Esterase Negative (NEGATIVE) 06/09/20 04:40 Stool Description Fob tube 06/08/20 17:20 Stl Occult Blood (IFOB) Positive (NEGATIVE) A 06/08/20 17:20 Blood Type A POSITIVE 06/08/20 16:54 Antibody Screen Negative 06/08/20 16:54 Review of Systems Constitutional: No Symptoms Reported Eyes: No Symptoms Reported ENT: Other (nose bleed ) Respiratory: No Symptoms Reported Cardiovascular: No Symptoms Reported Gastrointestinal: No Symptoms Reported Genitourinary: No Symptoms Reported Musculoskeletal: No Symptoms Reported Skin: Bruising Neurological: No Symptoms Reported Physical Exam Vital Signs: Temperature 98.1 F Pulse Rate 65 Respiratory Rate 17 Blood Pressure [Right Arm] 189/82 Blood Pressure 115/60 O2 Sat by Pulse Oximetry 100 Oriented: Normal Eyes: Normal Ear: Normal Nose: Blood (dried blood ) Throat: Normal Respiratory: Clear Throughout Cardiovascular: Normal and Other (surgical scar noted, healing well ) Auscultation: Bowel Sounds: Normal Palpation: Normal and Other (PEG tube in place ) Tenderness: Normal Skin: Ecchymosis Musculoskeletal: Normal Psychiatric: Normal Mood Description: Calm and Appropriate Affect: Normal Speech Pattern: Clear and Appropriate Assessment/Plan (1) Coagulopathy: Status: Acute (2) Elevated INR: Status: Acute (3) Hemorrhage from nose: Status: Acute (4) Acute kidney injury: Status: Acute (5) Anemia: Qualifiers: Anemia type: unspecified type Qualified Code(s): D64.9 - Anemia, unspecified Status: Acute (6) S/P CABG (coronary artery bypass graft): Status: Acute (7) Mechanical heart valve present: Status: Acute (8) Atrial fibrillation: Qualifiers: Atrial fibrillation type: unspecified chronic Qualified Code(s): I48.20 - Chronic atrial fibrillation, unspecified Status: Acute Review H&P Reviewed: Yes Patient was examined?: Yes
[2020-06-09] MEDS ORDERED: NS 500 ML IV 500 ML IV ONE (12:46)
[2020-06-09] MEDS: LASIX PO SCH (17:29)
[2020-06-09] MEDS: LIPITOR TAB 10 MG PO SCH (20:43)
[2020-06-09] MEDS: ULTRAM PO PRN (23:39)
[2020-06-10 05:04] LABS: BASOPHILS % (AUTO) 0.4 % (0.2-1.0); EOSINOPHILS # (AUTO) 0.2 x10^3/uL (0.0-0.2); EOSINOPHILS % (AUTO) 3.1 % (0.9-2.9); HEMATOCRIT 28.4 % (42.0-54.0); HEMOGLOBIN 9.5 g/dL (13.5-18.0); LYMPHOCYTES # (AUTO) 0.8 X10^3/uL (1.3-2.9); LYMPHOCYTES % (AUTO) 10.6 % (21.0-51.0); MEAN CORPUSCULAR HEMOGLOBIN 29.5 pg (27.0-34.0); MEAN CORPUSCULAR HGB CONC 33.3 g/dL (33.0-35.0); MEAN CORPUSCULAR VOLUME 88.6 fL (80.0-100.0); MEAN PLATELET VOLUME 7.5 fL (7.4-11.0); MONOCYTES # (AUTO) 0.7 x10^3/uL (0.3-0.8); MONOCYTES % (AUTO) 9.4 % (0.0-13.0); NEUTROPHILS # (AUTO) 5.7 x10^3/uL (2.2-4.8); NEUTROPHILS % (AUTO) 76.5 % (42.0-75.0); PLATELET COUNT 455 X10^3/uL (150.0-450.0); RED CELL DISTRIBUTION WIDTH 13.6 % (11.6-16.5); WHITE BLOOD COUNT 7.4 X10^3/uL (3.6-10.0)
[2020-06-10 05:07] LABS: BLOOD UREA NITROGEN 31 mg/dL (7-18); CALCIUM 9.1 mg/dL (8.5-10.1); CARBON DIOXIDE 29.6 mmol/L (21-32); CHLORIDE 96 mmol/L (98-107); CREATININE 1.31 mg/dL (0.70-1.30); SODIUM 131 mmol/L (136-145); eGFR NON BLACK RACES 58 (>60)
[2020-06-10] MEDS: CORDARONE TAB 200 MG PO SCH (08:50)
[2020-06-10] MEDS: LOPRESSOR TAB 25 MG PO SCH (08:51)
[2020-06-10] MEDS: SYNTHROID 50 mcg TAB PO SCH (08:51)
[2020-06-10] MEDS: PROTONIX INJ 40 MG VIAL IVP SCH (08:51)
[2020-06-10] MEDS: LASIX PO SCH (08:51)
--- NOTE | 2020-06-10 09:29 | W.DIS.FURT ---
Summary of Discharge Admission Diagnosis Patient Problems (Updated 06/09/20 @ 09:48 by Tori Huang) Coagulopathy (Acute) D68.9 Vital Signs: Vital Signs (72 hours) 06/08/20 14:15 06/08/20 14:19 06/08/20 14:21 Temperature 96.9 F L Pulse Rate 61 61 Respiratory Rate 20 17 Blood Pressure 125/62 O2 Sat by Pulse Oximetry 99 06/08/20 14:30 06/08/20 14:31 06/08/20 14:45 Temperature Pulse Rate 60 58 L Respiratory Rate 17 Blood Pressure 99/61 O2 Sat by Pulse Oximetry 100 97 06/08/20 14:54 06/08/20 15:00 06/08/20 15:10 Temperature Pulse Rate 57 L 57 L 56 L Respiratory Rate 14 Blood Pressure 112/58 108/57 110/66 O2 Sat by Pulse Oximetry 97 97 98 06/08/20 15:15 06/08/20 15:20 06/08/20 15:30 Temperature Pulse Rate 56 L 55 L 57 L Respiratory Rate 14 Blood Pressure 101/61 111/57 O2 Sat by Pulse Oximetry 90 L 95 85 L 06/08/20 15:40 06/08/20 15:45 06/08/20 15:50 Temperature Pulse Rate 65 64 64 Respiratory Rate 13 14 Blood Pressure 119/66 124/67 O2 Sat by Pulse Oximetry 06/08/20 16:00 06/08/20 16:10 06/08/20 16:15 Temperature Pulse Rate 64 64 64 Respiratory Rate 12 11 L 14 Blood Pressure 130/74 130/71 O2 Sat by Pulse Oximetry 06/08/20 16:20 06/08/20 16:30 06/08/20 16:40 Temperature Pulse Rate 64 54 L 55 L Respiratory Rate 11 L 10 L 16 Blood Pressure 116/65 126/68 131/78 O2 Sat by Pulse Oximetry 06/08/20 16:45 06/08/20 16:50 06/08/20 17:00 Temperature Pulse Rate 56 L 56 L 65 Respiratory Rate 14 Blood Pressure 134/58 O2 Sat by Pulse Oximetry 06/08/20 17:01 06/08/20 17:10 06/08/20 17:15 Temperature Pulse Rate 65 65 66 Respiratory Rate 17 15 27 H Blood Pressure 134/72 127/75 O2 Sat by Pulse Oximetry 06/08/20 17:20 06/08/20 17:30 06/08/20 17:40 Temperature Pulse Rate 66 59 L 64 Respiratory Rate 20 20 15 Blood Pressure 142/87 147/77 139/76 O2 Sat by Pulse Oximetry 06/08/20 21:00 06/08/20 22:30 06/08/20 22:33 Temperature Pulse Rate 72 69 Respiratory Rate 18 37 H 18 Blood Pressure 148/69 104/59 O2 Sat by Pulse Oximetry 100 100 06/08/20 23:00 06/08/20 23:30 06/08/20 23:33 Temperature Pulse Rate 61 53 L Respiratory Rate 27 H 26 H 18 Blood Pressure 110/55 89/51 O2 Sat by Pulse Oximetry 100 100 06/09/20 00:00 06/09/20 00:30 06/09/20 01:00 Temperature 98.1 F Pulse Rate 63 64 63 Respiratory Rate 17 23 24 Blood Pressure 106/58 106/56 107/59 O2 Sat by Pulse Oximetry 100 100 100 06/09/20 01:30 06/09/20 02:00 06/09/20 02:30 Temperature Pulse Rate 64 64 63 Respiratory Rate 21 18 22 Blood Pressure 107/60 113/60 117/61 O2 Sat by Pulse Oximetry 99 100 100 06/09/20 03:00 06/09/20 03:30 06/09/20 04:00 Temperature Pulse Rate 62 63 62 Respiratory Rate 25 H 17 21 Blood Pressure 112/57 108/59 118/58 O2 Sat by Pulse Oximetry 100 100 100 06/09/20 04:30 06/09/20 05:00 06/09/20 05:30 Temperature 97.7 F Pulse Rate 65 67 67 Respiratory Rate 23 21 11 L Blood Pressure 121/64 125/64 106/59 O2 Sat by Pulse Oximetry 100 100 100 06/09/20 06:00 06/09/20 07:00 06/09/20 08:00 Temperature 98.1 F Pulse Rate 67 66 66 Respiratory Rate 13 12 14 Blood Pressure 115/57 125/65 127/68 O2 Sat by Pulse Oximetry 100 100 100 06/09/20 09:00 06/09/20 10:00 06/09/20 11:00 Temperature Pulse Rate 65 69 69 Respiratory Rate 17 16 16 Blood Pressure 115/60 106/58 111/56 O2 Sat by Pulse Oximetry 100 100 100 06/09/20 12:00 06/09/20 13:00 06/09/20 14:00 Temperature 98.3 F Pulse Rate 64 64 69 Respiratory Rate 21 24 18 Blood Pressure 138/67 129/66 142/70 O2 Sat by Pulse Oximetry 100 100 100 06/09/20 14:20 06/09/20 14:21 06/09/20 14:39 Temperature Pulse Rate 73 73 67 Respiratory Rate 30 H 33 H 33 H Blood Pressure 142/70 124/56 O2 Sat by Pulse Oximetry 94 L 100 06/09/20 15:00 06/09/20 15:52 06/09/20 16:00 Temperature 98.2 F Pulse Rate 71 68 68 Respiratory Rate 27 H 30 H 28 H Blood Pressure 125/60 119/63 126/64 O2 Sat by Pulse Oximetry 100 100 100 06/09/20 17:00 06/09/20 17:28 06/09/20 17:29 Temperature Pulse Rate 70 71 70 Respiratory Rate 20 29 H Blood Pressure 131/74 131/74 O2 Sat by Pulse Oximetry 100 100 99 06/09/20 18:00 06/09/20 18:22 06/09/20 19:00 Temperature Pulse Rate 72 76 73 Respiratory Rate 42 H 27 H 20 Blood Pressure 168/75 168/75 119/60 O2 Sat by Pulse Oximetry 100 100 100 06/09/20 19:17 06/09/20 19:28 06/09/20 20:00 Temperature 98.1 F Pulse Rate 86 77 74 Respiratory Rate 30 H 22 Blood Pressure 119/60 125/61 O2 Sat by Pulse Oximetry 99 100 100 06/09/20 21:00 06/09/20 21:11 06/09/20 22:00 Temperature Pulse Rate 73 63 Respiratory Rate 31 H 18 25 H Blood Pressure 130/62 132/65 O2 Sat by Pulse Oximetry 100 100 06/09/20 23:00 06/09/20 23:39 06/10/20 00:00 Temperature 98.2 F Pulse Rate 63 65 Respiratory Rate 24 16 22 Blood Pressure 123/62 136/69 O2 Sat by Pulse Oximetry 100 100 06/10/20 00:39 06/10/20 01:00 06/10/20 02:00 Temperature Pulse Rate 63 64 Respiratory Rate 20 33 H 13 Blood Pressure 133/62 115/66 O2 Sat by Pulse Oximetry 100 100 06/10/20 02:27 06/10/20 03:00 06/10/20 04:00 Temperature 98.1 F Pulse Rate 65 64 66 Respiratory Rate 12 28 H 36 H Blood Pressure 115/66 146/66 159/74 O2 Sat by Pulse Oximetry 100 99 100 06/10/20 05:00 06/10/20 06:00 06/10/20 06:01 Temperature Pulse Rate 64 67 67 Respiratory Rate 12 28 H 32 H Blood Pressure 111/58 118/62 118/62 O2 Sat by Pulse Oximetry 100 100 100 06/10/20 07:00 06/10/20 08:00 Temperature Pulse Rate 71 75 Respiratory Rate 10 L 30 H Blood Pressure 140/69 O2 Sat by Pulse Oximetry 100 99 Labs: Laboratory Last Values WBC 7.4 X10^3/uL (3.6-10.0) 06/10/20 04:20 RBC 3.20 X10^6/uL (4.7-6.0) L 06/10/20 04:20 Hgb 9.5 g/dL (13.5-18.0) L 06/10/20 04:20 Hct 28.4 % (42.0-54.0) L 06/10/20 04:20 MCV 88.6 fL (80.0-100.0) 06/10/20 04:20 MCH 29.5 pg (27.0-34.0) 06/10/20 04:20 MCHC 33.3 g/dL (33.0-35.0) 06/10/20 04:20 RDW 13.6 % (11.6-16.5) 06/10/20 04:20 Plt Count 455 X10^3/uL (150.0-450.0) H 06/10/20 04:20 MPV 7.5 fL (7.4-11.0) 06/10/20 04:20 Neut % (Auto) 76.5 % (42.0-75.0) H 06/10/20 04:20 Lymph % (Auto) 10.6 % (21.0-51.0) L 06/10/20 04:20 [place] % (Auto) 9.4 % (0.0-13.0) 06/10/20 04:20 Eos % (Auto) 3.1 % (0.9-2.9) H 06/10/20 04:20 Baso % (Auto) 0.4 % (0.2-1.0) 06/10/20 04:20 Neut # (Auto) 5.7 x10^3/uL (2.2-4.8) H 06/10/20 04:20 Lymph # (Auto) 0.8 X10^3/uL (1.3-2.9) L 06/10/20 04:20 [place] # (Auto) 0.7 x10^3/uL (0.3-0.8) 06/10/20 04:20 Eos # (Auto) 0.2 x10^3/uL (0.0-0.2) 06/10/20 04:20 Baso # (Auto) 0.0 X10^3/uL (0.0-0.1) 06/10/20 04:20 Absolute Nucleated RBC 0.0 /100WBC 06/10/20 04:20 PT 48.4 SECONDS (11.8-14.3) 06/10/20 04:20 INR Target Range - 06/10/20 04:20 INR 5.50 (0.8-1.3) H* 06/10/20 04:20 APTT 69.5 SECONDS (22.9-36.5) H 06/09/20 04:20 PTT Comment - 06/09/20 04:20 Sodium 131 mmol/L (136-145) L 06/10/20 04:20 Corrected Sodium TNP 06/10/20 04:20 Potassium 5.0 mmol/L (3.5-5.1) 06/10/20 04:20 Chloride 96 mmol/L (98-107) L 06/10/20 04:20 Carbon Dioxide 29.6 mmol/L (21-32) 06/10/20 04:20 BUN 31 mg/dL (7-18) H 06/10/20 04:20 Creatinine 1.31 mg/dL (0.70-1.30) H 06/10/20 04:20 Est GFR (MDRD) Af Amer > 60 (>60) 06/10/20 04:20 Est GFR (MDRD) Non-Af 58 (>60) L 06/10/20 04:20 Glucose 107 mg/dL (65-99) H 06/10/20 04:20 Calcium 9.1 mg/dL (8.5-10.1) 06/10/20 04:20 Corrected Calcium 10.6 mg/dL (8.5-10.1) H 06/09/20 04:20 Magnesium 2.2 mg/dL (1.7-2.9) 06/09/20 04:20 Total Bilirubin 0.30 mg/dL (0.2-1.0) 06/09/20 04:20 AST 43 Units/L (15-37) H 06/09/20 04:20 ALT 58 Units/L (12-78) 06/09/20 04:20 Alkaline Phosphatase 82 Units/L (46-116) 06/09/20 04:20 Total Protein 7.5 g/dL (6.4-8.2) 06/09/20 04:20 Albumin 2.4 g/dL (3.4-5.0) L 06/09/20 04:20 Globulin 5.1 g/dL (2.5-4.5) H 06/09/20 04:20 Albumin/Globulin Ratio 0.5 Ratio (1.1-2.1) L 06/09/20 04:20 Specimen Type Clean catch urine 06/09/20 04:40 Urine Color Yellow (YELLOW) 06/09/20 04:40 Urine Appearance Hazy (CLEAR) 06/09/20 04:40 Urine pH 8.0 (5.0 - 8.0) 06/09/20 04:40 Ur Specific [place] 1.015 (1.000-1.030) 06/09/20 04:40 Urine Protein Negative (NEGATIVE) 06/09/20 04:40 Urine Glucose (UA) Negative (NEGATIVE) 06/09/20 04:40 Urine Ketones Negative (NEGATIVE) 06/09/20 04:40 Urine Occult Blood Negative (NEGATIVE) 06/09/20 04:40 Urine Nitrite Negative (NEGATIVE) 06/09/20 04:40 Urine Bilirubin Negative (NEGATIVE) 06/09/20 04:40 Urine Urobilinogen Normal (NORMAL) 06/09/20 04:40 Ur Leukocyte Esterase Negative (NEGATIVE) 06/09/20 04:40 Stool Description Fob tube 06/08/20 17:20 Stl Occult Blood (IFOB) Positive (NEGATIVE) A 06/08/20 17:20 Blood Type A POSITIVE 06/08/20 16:54 Antibody Screen Negative 06/08/20 16:54 Reason For Visit: COUMADIN TOXICITY, NOSE BLEED,POST HEART VALVE Discharge Diagnosis All Active Problems (Updated 06/09/20 @ 09:48 by Tori Huang) Atrial fibrillation (Acute) Mechanical heart valve present (Acute) S/P CABG (coronary artery bypass graft) (Acute) Anemia (Acute) Acute kidney injury (Acute) Hemorrhage from nose (Acute) Elevated INR (Acute) Allergic reaction (Acute) Pruritus (Acute) Altered mental status (Acute) Hyponatremia (Acute) Accelerated hypertension (Acute) COPD (chronic obstructive pulmonary disease) (Acute) Chronic kidney disease (CKD) (Acute) Abnormal EKG (Acute) Coagulopathy (Acute) Plan of Treatment: Continue with present treatment and follow up plan. Pt is to keep follow up appointment as instructed and take medications as ordered. Discharge Medications Discharge Medications: No Known Drug Allergies Allergy (Verified 06/08/20 16:03) CONTINUE taking the following medications amiodarone [Pacerone] 200 mg PO DAILY 06/08/20 [History] atorvastatin 10 mg PO HS 06/08/20 [History] furosemide 40 mg PO BID 06/08/20 [History] levothyroxine 50 mcg PO DAILY 06/08/20 [History] metoprolol tartrate 25 mg PO BID 06/08/20 [History] tramadol 100 mg PO Q8H PRN 06/08/20 [History] New Prescriptions pantoprazole 40 mg PO QAM 28 Days #28 tab 06/10/20 [Rx] Discharge Plan Discharge Plan Patient Disposition: 06 [facility] Condition: Stable Health Concerns: Post Hospitalization: new medications and changes needed to prevent readmission or further decline. Pt educated and given instructions on all concerns. Care Plan Goals: Problem: Cardiac Complications Goal: Early Recognition of cardiac complications for prompt intervention Instructions: Follow provided instructions. Follow up with primary physician as directed. Contact primary care physician or report to the closest Emergency Room if condition worsens. Plan of Treatment: Continue with present treatment and follow up plan. Pt is to keep follow up appointment as instructed and take medications as ordered. Prescription drug monitoring program results: PDMP reviewed and no concerns doris ntified Prescriptions: New pantoprazole 40 mg tablet,delayed release (DR/EC) 40 mg PO QAM 28 Days Qty: 28 RF: 0 Continued furosemide 40 mg tablet 40 mg PO BID RF: 0 atorvastatin 10 mg tablet 10 mg PO HS RF: 0 amiodarone [Pacerone] 200 mg tablet 200 mg PO DAILY RF: 0 tramadol 50 mg tablet 100 mg PO Q8H PRN (Reason: Pain) RF: 0 levothyroxine 50 mcg tablet 50 mcg PO DAILY RF: 0 metoprolol tartrate 25 mg tablet 25 mg PO BID RF: 0 Discontinued lisinopril 20 mg tablet 20 mg PO DAILY RF: 0 aspirin 81 mg tablet,delayed release (DR/EC) 81 mg PO DAILY RF: 0 warfarin 5 mg tablet 5 mg PO DAILY RF: 0 Follow ups/Referrals Follow ups/Referrals: ZEB BEE [Primary Care Provider] - 06/13/20 (Call anytime and you can be seen.) LYNESY B[facility]ER [facility] [STAFF PHYSICIAN] - Instructions Instructions: Chronic Obstructive Pulmonary Disease, [id number], Activated Clotting Time Test, Warfarin Coagulopathy, Bleeding Precautions When on Anticoagulant Therapy, Adult, What You Need to Know About Warfarin, Hypertension, [id number], Atrial Fibrillation, [id number] Activity Restrictions/Additional Instructions: Do not take warfarin, aspirin and lisinopril till seen by primary care provider on Saturday06/13/20 Needs PT/INR , CBC and BMP done at visit Adjust warfarin based on INR results Stand Alone Forms: Precautions for COVID19, Patient Portal, Social Distancing
[2020-06-10 09:33] VITALS: BP 115/56
== END 2020-06-10 10:05 | disposition home health service (06) | DRG 813 ==
LOC: ER 14:15 → ICU 14:15 → OBSVTOIN 17:55 → ICU 18:40
PROVIDERS: ADMIT Internal Medicine; ATTEND Internal Medicine
DX: Z20.828 Contact with and (suspected) exposure to other viral communicable diseases; Z95.1 Presence of aortocoronary bypass graft; Z85.819 Personal history of malignant neoplasm of unspecified site of lip, oral cavity, and pharynx; R04.0 Epistaxis; T45.515A Adverse effect of anticoagulants, initial encounter; I48.20 Chronic atrial fibrillation, unspecified; D68.9 Coagulation defect, unspecified; Z93.1 Gastrostomy status; Z95.2 Presence of prosthetic heart valve; N17.8 Other acute kidney failure; D64.9 Anemia, unspecified

== ENCOUNTER 2024-07-09 06:39 | Observation (INO) ==
--- NOTE | 2024-07-09 07:03 | EKG ---
Test Reason : abdominal pain Blood Pressure : */* mmHG Vent. Rate : 58 BPM Atrial Rate : 58 BPM P-R Int : 228 ms QRS Dur : 96 ms QT Int : 490 ms P-R-T Axes : 81 -33 96 degrees QTc Int : 481 ms Sinus bradycardia with 1st degree AV block Left axis deviation Pulmonary disease pattern Minimal voltage criteria for LVH, may be normal variant ( Tray product ) Abnormal QRS-T angle, consider primary T wave abnormality Prolonged QT Abnormal ECG No previous ECGs available Confirmed by Horace Barajas MD ([id number]) on 07/09/2024 7:29:37 AM Referred By: Confirmed By: Horace Barajas MD
--- NOTE | 2024-07-09 07:12 | DR.ABDMALE ---
HPI <MJ WILDER - Last Filed: 07/09/24 07:54> Time seen Time Seen by Provider: 07/09/24 07:12 PCP Primary Care Physician: Caitlin Bee HPI comment HPI Comment: History as below. Complaint Chief Complaint Doctors Comments: Patient is 68 yrr old male in ER with lower abdominal pain and bruising noted Chief Complaint:: Patient states he has had severe RLQ, LLQ pain the past couple of days which has become worse in the past 24 hours. He has contusions below umbilical area and LLQ. Patient reports recent history of FLU COVID-19 Coronavirus risk:travel/contact w/high risk person: No Has patient experienced Coronavirus symptoms: No Reviewed Nurses Notes Review: Yes Mode of arrival Mode of Arrival: Ambulatory Timing Onset of Chief Complaint: 07/07/24 <Farhad Welch - Last Filed: 07/09/24 09:03> HPI comment HPI Comment: History as below. 0845 - Dr. Welch -discussed report from Dr. Wilder. Spoke with patient and he states he has had a difficult time managing his Coumadin in the past. He does have a mechanical valve and that is why they are keeping him on Coumadin. Patient does not remember any injury other than maybe bumping his abdomen while working on cabinets in the house. At this time he denies any pain. Denies any diarrhea, constipation, nausea or vomiting. CT scan showed hematoma in the abdominal wall. It did show some thickening of the bladder and discussed with patient need for follow-up with urology as an outpatient. Discussed labs and imaging with patient. Patient states he had been sick with cough before bed at this time and it has resolved. States he was positive for flu. PMH <MJ WILDER - Last Filed: 07/09/24 07:54> PMH Past Medical History: Yes Past Medical History: Coronary Artery Disease, Hypertension and Sleep Apnea Past Surgical History: Yes Surgical History: Abdominal Surgery, Angioplasty/Stents, CABG/Valve Surgery, Hysterectomy and Tonsillectomy Past Surgical History Comment: CABG Family History History of Family Medical Conditions: Yes Family Medical History: ID and Coronary Artery Disease Social History Does patient currently use any type of tobacco product: No Have you used tobacco products in the last 12 months: No Type of Tobacco Use: None Does any household member use tobacco: No Alcohol Use: Occasionally Do you use any recreational Drugs:: No Lives With: Spouse Lives Where: Home Travel Risk Coronavirus risk:travel/contact w/high risk person: No Has patient experienced Coronavirus symptoms: No Infectious screening In the last 2 months have you had wt loss of >10#?: NO Have you had fever, night sweats or hemotysis?: No Have you traveled outside the country in the last 6 months?: No Isolation: Standard <Farhad Welch - Last Filed: 07/09/24 09:03> Review of Systems Constitutional: No Symptoms Reported Eyes: No Symptoms Reported ENTM: No Symptoms Reported Respiratoy: No Symptoms Reported Cardiovascular: No Symptoms Reported Gastrointestinal/Abdominal: See HPI Genitourinary: No Symptoms Reported Neurological: No Symptoms Reported Musculoskeletal: No Symptoms Reported Integumentary: No Symptoms Reported Hematologic/Lymphatic: No Symptoms Reported Endocrine: No Symptoms Reported Psychiatric: No Symptoms Reported All Other Systems: Reviewed and Negative PE <MJ WILDER - Last Filed: 07/09/24 07:54> Vital Signs Vital Signs: Temp Pulse Resp BP Pulse Ox O2 Del Method 07/09/24 08:45 56 L 99 07/09/24 08:30 87/51 07/09/24 08:30 53 L 97 07/09/24 08:15 54 L 97 07/09/24 08:01 55 L 97 07/09/24 08:01 84/52 07/09/24 08:00 54 L 98 07/09/24 07:45 57 L 99 07/09/24 07:30 153/81 07/09/24 07:30 57 L 100 07/09/24 08:06 17 07/09/24 07:36 20 07/09/24 07:17 57 L 99 07/09/24 06:40 98.9 F 64 20 114/73 100 Room Air <Farhad Welch - Last Filed: 07/09/24 09:03> Vital Signs Vital Signs: Temp Pulse Resp BP Pulse Ox O2 Del Method 07/09/24 08:45 56 L 99 07/09/24 08:30 87/51 07/09/24 08:30 53 L 97 07/09/24 08:15 54 L 97 07/09/24 08:01 55 L 97 07/09/24 08:01 84/52 07/09/24 08:00 54 L 98 07/09/24 07:45 57 L 99 07/09/24 07:30 153/81 07/09/24 07:30 57 L 100 07/09/24 08:06 17 07/09/24 07:36 20 07/09/24 07:17 57 L 99 07/09/24 06:40 98.9 F 64 20 114/73 100 Room Air General Limitations: No Limitations General Appearance: Alert and In No Apparent Distress Head Head Exam: Normal Inspection Eyes Eye exam: Normal Appearance ENT ENT Exam: Normal Exam Neck Neck Exam: Normal Inspection Chest Chest Inspection: Normal Inspection Respiratory Respiratory Exam: Normal Lung Sounds Bilat Cardiovascular Cardiovascular Exam: Regular Rate and Normal Rhythm Abdominal Exam Abdominal Exam: Normal Inspection, Normal Bowel Sounds and Soft; negative Distention, Tenderness, Guarding, Rebound or Rigidity Rectal Rectal Exam: Deferred Back Back Exam: Normal Inspection Extremeties Extremities Exam: Normal Inspection Exam: Male: Deferred Neurologic Neurological Exam: Alert and Oriented X3 Psychiatric Psychiatric Exam: Normal Affect and Normal Mood Skin Skin Exam: Warm, Dry, Intact, Normal Color and Other (Bruising along lower abdomen throughout all quadrants.) <Farhad Welch - Last Filed: 07/09/24 09:03> Consultation Called: 08:53 Consultation Comments: Discussed case with Dr. Huang. She is agreeable to admission. Discussed labs and imaging findings. Will hold off on vitamin K for now and just watch hemoglobin since his hemoglobin has been stable. ROR <MJ WILDER - Last Filed: 07/09/24 07:54> Labs Reviewed 07/09/24 07:07 07/09/24 07:07 Laboratory: WBC 14.1 X10^3/uL (3.6-10.0) H 07/09/24 07:07 RBC 4.22 X10^6/uL (4.7-6.0) L 07/09/24 07:07 Hgb 13.5 g/dL (13.5-18.0) 07/09/24 07:07 Hct 39.1 % (42.0-54.0) L 07/09/24 07:07 MCV 92.6 fL (80.0-100.0) 07/09/24 07:07 MCH 31.9 pg (27.0-34.0) 07/09/24 07:07 MCHC 34.5 g/dL (33.0-35.0) 07/09/24 07:07 RDW 13.8 % (11.6-16.5) 07/09/24 07:07 Plt Count 312 X10^3/uL (150.0-450.0) 07/09/24 07:07 Plt Count Comment Adequate (ADEQUATE) 07/09/24 07:07 MPV 8.0 fL (7.4-11.0) 07/09/24 07:07 Neut % (Auto) 91.8 % (42.0-75.0) H 07/09/24 07:07 Lymph % (Auto) 3.5 % (21.0-51.0) L 07/09/24 07:07 [place] % (Auto) 4.1 % (0.0-13.0) 07/09/24 07:07 Eos % (Auto) 0.0 % (0.9-2.9) L 07/09/24 07:07 Baso % (Auto) 0.6 % (0.2-1.0) 07/09/24 07:07 Neut # (Auto) 12.9 x10^3/uL (2.2-4.8) H 07/09/24 07:07 Lymph # (Auto) 0.5 X10^3/uL (1.3-2.9) L 07/09/24 07:07 [place] # (Auto) 0.6 x10^3/uL (0.3-0.8) 07/09/24 07:07 Eos # (Auto) 0.0 x10^3/uL (0.0-0.2) 07/09/24 07:07 Baso # (Auto) 0.1 X10^3/uL (0.0-0.1) 07/09/24 07:07 Absolute Nucleated RBC 0.0 /100WBC 07/09/24 07:07 Total Counted 100 07/09/24 07:07 Neutrophils % (Manual) 87 % (39-76) H 07/09/24 07:07 Band Neutrophils % 4 % (0-10) 07/09/24 07:07 Lymphocytes % (Manual) 4 % (13-43) L 07/09/24 07:07 Monocytes % (Manual) 5 % (4-9) 07/09/24 07:07 Plt Morphology Comment Normal (NORMAL) 07/09/24 07:07 RBC Morphology Normal (NORMAL) 07/09/24 07:07 PT 59.2 SECONDS (11.8-14.3) 07/09/24 07:07 INR Target Range - 07/09/24 07:07 INR 7.28 (0.8-1.3) H* 07/09/24 07:07 APTT 45.9 SECONDS (22.9-36.5) H 07/09/24 07:07 PTT Comment - 07/09/24 07:07 Sodium 130 mmol/L (136-145) L 07/09/24 07:07 Corrected Sodium 131 mmol/L (136-145) L 07/09/24 07:07 Potassium 4.9 mmol/L (3.5-5.1) 07/09/24 07:07 Chloride 95 mmol/L (98-107) L 07/09/24 07:07 Carbon Dioxide 28.3 mmol/L (21-32) 07/09/24 07:07 BUN 28 mg/dL (7-18) H 07/09/24 07:07 Creatinine 1.82 mg/dL (0.70-1.30) H 07/09/24 07:07 Est GFR (MDRD) Af Amer 48 (>60) L 07/09/24 07:07 Est GFR (MDRD) Non-Af 39 (>60) L 07/09/24 07:07 Glucose 157 mg/dL (65-99) H 07/09/24 07:07 Calcium 9.4 mg/dL (8.5-10.1) 07/09/24 07:07 Corrected Calcium TNP 07/09/24 07:07 Total Bilirubin 0.70 mg/dL (0.2-1.0) 07/09/24 07:07 AST 25 Units/L (15-37) 07/09/24 07:07 ALT 25 Units/L (12-78) 07/09/24 07:07 Alkaline Phosphatase 67 Units/L (46-116) 07/09/24 07:07 Total Protein 7.7 g/dL (6.4-8.2) 07/09/24 07:07 Albumin 3.5 g/dL (3.4-5.0) 07/09/24 07:07 Globulin 4.2 g/dL (2.5-4.5) 07/09/24 07:07 Albumin/Globulin Ratio 0.8 Ratio (1.1-2.1) L 07/09/24 07:07 <Farhad Welch - Last Filed: 07/09/24 09:03> Labs Reviewed Laboratory: WBC 14.1 X10^3/uL (3.6-10.0) H 07/09/24 07:07 RBC 4.22 X10^6/uL (4.7-6.0) L 07/09/24 07:07 Hgb 13.5 g/dL (13.5-18.0) 07/09/24 07:07 Hct 39.1 % (42.0-54.0) L 07/09/24 07:07 MCV 92.6 fL (80.0-100.0) 07/09/24 07:07 MCH 31.9 pg (27.0-34.0) 07/09/24 07:07 MCHC 34.5 g/dL (33.0-35.0) 07/09/24 07:07 RDW 13.8 % (11.6-16.5) 07/09/24 07:07 Plt Count 312 X10^3/uL (150.0-450.0) 07/09/24 07:07 Plt Count Comment Adequate (ADEQUATE) 07/09/24 07:07 MPV 8.0 fL (7.4-11.0) 07/09/24 07:07 Neut % (Auto) 91.8 % (42.0-75.0) H 07/09/24 07:07 Lymph % (Auto) 3.5 % (21.0-51.0) L 07/09/24 07:07 [place] % (Auto) 4.1 % (0.0-13.0) 07/09/24 07:07 Eos % (Auto) 0.0 % (0.9-2.9) L 07/09/24 07:07 Baso % (Auto) 0.6 % (0.2-1.0) 07/09/24 07:07 Neut # (Auto) 12.9 x10^3/uL (2.2-4.8) H 07/09/24 07:07 Lymph # (Auto) 0.5 X10^3/uL (1.3-2.9) L 07/09/24 07:07 [place] # (Auto) 0.6 x10^3/uL (0.3-0.8) 07/09/24 07:07 Eos # (Auto) 0.0 x10^3/uL (0.0-0.2) 07/09/24 07:07 Baso # (Auto) 0.1 X10^3/uL (0.0-0.1) 07/09/24 07:07 Absolute Nucleated RBC 0.0 /100WBC 07/09/24 07:07 Total Counted 100 07/09/24 07:07 Neutrophils % (Manual) 87 % (39-76) H 07/09/24 07:07 Band Neutrophils % 4 % (0-10) 07/09/24 07:07 Lymphocytes % (Manual) 4 % (13-43) L 07/09/24 07:07 Monocytes % (Manual) 5 % (4-9) 07/09/24 07:07 Plt Morphology Comment Normal (NORMAL) 07/09/24 07:07 RBC Morphology Normal (NORMAL) 07/09/24 07:07 PT 59.2 SECONDS (11.8-14.3) 07/09/24 07:07 INR Target Range - 07/09/24 07:07 INR 7.28 (0.8-1.3) H* 07/09/24 07:07 APTT 45.9 SECONDS (22.9-36.5) H 07/09/24 07:07 PTT Comment - 07/09/24 07:07 Sodium 130 mmol/L (136-145) L 07/09/24 07:07 Corrected Sodium 131 mmol/L (136-145) L 07/09/24 07:07 Potassium 4.9 mmol/L (3.5-5.1) 07/09/24 07:07 Chloride 95 mmol/L (98-107) L 07/09/24 07:07 Carbon Dioxide 28.3 mmol/L (21-32) 07/09/24 07:07 BUN 28 mg/dL (7-18) H 07/09/24 07:07 Creatinine 1.82 mg/dL (0.70-1.30) H 07/09/24 07:07 Est GFR (MDRD) Af Amer 48 (>60) L 07/09/24 07:07 Est GFR (MDRD) Non-Af 39 (>60) L 07/09/24 07:07 Glucose 157 mg/dL (65-99) H 07/09/24 07:07 Calcium 9.4 mg/dL (8.5-10.1) 07/09/24 07:07 Corrected Calcium TNP 07/09/24 07:07 Total Bilirubin 0.70 mg/dL (0.2-1.0) 07/09/24 07:07 AST 25 Units/L (15-37) 07/09/24 07:07 ALT 25 Units/L (12-78) 07/09/24 07:07 Alkaline Phosphatase 67 Units/L (46-116) 07/09/24 07:07 Total Protein 7.7 g/dL (6.4-8.2) 07/09/24 07:07 Albumin 3.5 g/dL (3.4-5.0) 07/09/24 07:07 Globulin 4.2 g/dL (2.5-4.5) 07/09/24 07:07 Albumin/Globulin Ratio 0.8 Ratio (1.1-2.1) L 07/09/24 07:07 Opioid <MJ WILDER - Last Filed: 07/09/24 07:54> Opioid Risk Tool Age (Tayo box if 16-45): No History of Preadolescent Sexual Abuse: No Total: 0 Total Score Risk Category: Low Risk Copyright: Magdi GORDON predicting aberrant behaviors <Farhad Welch - Last Filed: 07/09/24 09:03> Opioid Risk Tool Total: 0 Total Score Risk Category: Low Risk Discharge Plan Diagnosis Discharge Problem: Elevated INR, Hyponatremia, Abdominal wall hematoma Discharge Plan Patient Disposition: 09 ADMITTED INPATIENT Condition: Stable Prescriptions: No Action carvedilol 6.25 mg tablet 6.25 mg PO BID azithromycin 250 mg tablet 250 mg PO DIRECTED warfarin 2.5 mg tablet 2.5 mg PO QDAY lisinopril 10 mg tablet 10 mg PO BID montelukast 10 mg tablet 10 mg PO QDAY amiodarone [Pacerone] 200 mg tablet 200 mg PO DAILY levothyroxine 50 mcg tablet 50 mcg PO DAILY Patient Comments: TAKE 1 TABLET BY MOUTH ONCE DAILY Health Concerns: Post Hospitalization: new medications and changes needed to prevent readmission or further decline. Pt educated and given instructions on all concerns. Plan of Treatment: Continue with present treatment and follow up plan. Pt is to keep follow up appointment as instructed and take medications as ordered. Orders to Discharge Patient Discharge Orders: Transfer (Routine); Ordered 07/09/24 Ordered By: Farhad Welch Follow ups/Referrals Follow ups/Referrals: CAITLIN BEE [Primary Care Provider] - 3 days Instructions Stand Alone Forms: Find Help Web Site, Post Hospital Follow Up Care
[2024-07-09] MEDS: MORPHINE SULFATE INJ 4 MG IVP ONE (07:36)
[2024-07-09] MEDS: MORPHINE SULFATE INJ 4 MG IM ONE (07:36)
[2024-07-09] MEDS: ZOFRAN INJ 4 MG VIAL IM ONE (07:36)
[2024-07-09] MEDS: ZOFRAN INJ 4 MG VIAL IVP ONE (07:37)
[2024-07-09 07:52] LABS: BASOPHILS # (AUTO) 0.1 X10^3/uL (0.0-0.1); BASOPHILS % (AUTO) 0.6 % (0.2-1.0); HEMATOCRIT 39.1 % (42.0-54.0); HEMOGLOBIN 13.5 g/dL (13.5-18.0); LYMPHOCYTES # (AUTO) 0.5 X10^3/uL (1.3-2.9); LYMPHOCYTES % (AUTO) 3.5 % (21.0-51.0); MEAN CORPUSCULAR HEMOGLOBIN 31.9 pg (27.0-34.0); MEAN CORPUSCULAR HGB CONC 34.5 g/dL (33.0-35.0); MEAN CORPUSCULAR VOLUME 92.6 fL (80.0-100.0); MONOCYTES # (AUTO) 0.6 x10^3/uL (0.3-0.8); MONOCYTES % (AUTO) 4.1 % (0.0-13.0); NEUTROPHILS # (AUTO) 12.9 x10^3/uL (2.2-4.8); NEUTROPHILS % (AUTO) 91.8 % (42.0-75.0); PLATELET COUNT 312 X10^3/uL (150.0-450.0); RED BLOOD COUNT 4.22 X10^6/uL (4.7-6.0); RED CELL DISTRIBUTION WIDTH 13.8 % (11.6-16.5); WHITE BLOOD COUNT 14.1 X10^3/uL (3.6-10.0)
[2024-07-09 08:04] LABS: ALANINE AMINOTRANSFERASE 25 Units/L (12-78); ALBUMIN 3.5 g/dL (3.4-5.0); ALKALINE PHOSPHATASE 67 Units/L (46-116); ASPARTATE AMINO TRANSFERASE 25 Units/L (15-37); BLOOD UREA NITROGEN 28 mg/dL (7-18); CALCIUM 9.4 mg/dL (8.5-10.1); CARBON DIOXIDE 28.3 mmol/L (21-32); CHLORIDE 95 mmol/L (98-107); COR NA(FOR HYPERGLY) 131 mmol/L (136-145); CREATININE 1.82 mg/dL (0.70-1.30); GLUCOSE 157 mg/dL (65-99); POTASSIUM 4.9 mmol/L (3.5-5.1); SODIUM 130 mmol/L (136-145); TOTAL PROTEIN 7.7 g/dL (6.4-8.2); eGFR NON BLACK RACES 39 (>60)
[2024-07-09 08:10] LABS: BAND NEUTROPHILS % 4 % (0-10); PLATELET MORPHOLOGY COMMENT NORMAL (NORMAL)
[2024-07-09 08:12] LABS: INR 7.28 (0.8-1.3)
--- NOTE | 2024-07-09 08:12 | CT ---
EXAM:CT abdomen pelvis without contrastHISTORY:Right upper quadrant pain, right lower quadrant pain, lower abdominal bruisingTECHNIQUE:Axial noncontrast images with coronal and sagittal reformats. Dose reduction procedures were used with mA/kv adjusted for body size. This examination is limited due to the lack of intravenous contrast. The examination was performed in this manner at the SOLE DIRECTION of the ordering caregiver. Radiology was afforded no inputCOMPARISON:NoneFINDINGS:Lung bases are clear. There is a hiatal hernia present. The liver, spleen, adrenal glands, and pancreas are within normal limits but only to the limitations of an unenhanced examination. No opaque stones are visible within the gallbladder. Kidneys are unobstructed and without stones. No ureteral calculi are identified. Calcific atherosclerotic changes present in a nondilated abdominal aorta. No enlarged intraperitoneal or retroperitoneal lymphadenopathy identified. No findings to suggest enteritis, colitis, or diverticulitis. In the right lower abdominal wall and likely originating within the right rectus abdominis sheath there is a large mass of mixed attenuation measuring at least 13.4 by 12.5 by 6.8 cm likely representing a right anterior abdominal wall hematoma. There is some surrounding hemorrhage extraperitoneally and anteriorly. There is some subcutaneous fat stranding likely related to the bruise described in the history. Active bleeding can not be excluded due to the lack of intravenous contrast. Examination of the pelvis demonstrated no evidence for pelvic masses, pelvic fluid, or pelvic lymphadenopathy. There is diffuse thickening of the bladder wall somewhat more prominent anteriorly. This could be related to cystitis, chronic outlet obstruction or bladder neoplasm. Urologic consultation may be indicated in order to determine if cystoscopy is indicated at this time. No lytic or blastic skeletal lesions of significance are identified.IMPRESSION:Large right-sided rectus abdominis/anterior abdominal wall hematoma measuring at least 13.4 x 12.5 x 6.8 cmDiffuse but irregular thickening of the bladder wall which could be due to chronic outlet obstruction, cystitis, or neoplasm. Urologic consultation may be indicated in order to determine if cystoscopy is indicated at this time.Hiatal herniaTHIS IS AN ELECTRONICALLY VERIFIED FINAL [id number]/2024 8:09 AM - Electronically signed by Luan Shipman MD
[2024-07-09] MEDS: MEPHYTON PO ONE (10:49)
[2024-07-09] MEDS ORDERED: CONSULT PHARMACY - POTASSIUM & MAGNESIUM XX SCH (11:08)
[2024-07-09 12:14] VITALS: BMI 24.2
[2024-07-09] MEDS: NS 1,000 ML IV 1,000 ML IV SCH (12:36)
[2024-07-09 14:27] LABS: BILIRUBIN,URINE NEGATIVE (NEGATIVE); BLOOD/HEMOGLOBIN,URINE NEGATIVE (NEGATIVE); GLUCOSE, URINE NEGATIVE (NEGATIVE); KETONES,URINE NEGATIVE (NEGATIVE); LEUKOCYTE ESTERASE ,URINE NEGATIVE (NEGATIVE); NITRITES,URINE NEGATIVE (NEGATIVE); PROTEIN,URINE 3+ (NEGATIVE); UROBILINOGEN,URINE NORMAL (NORMAL)
[2024-07-09 14:29] LABS: APPEARANCE,URINE CLEAR (CLEAR); COLOR,URINE YELLOW (YELLOW)
[2024-07-09 14:31] LABS: BASOPHILS % (AUTO) 0.1 % (0.2-1.0); EOSINOPHILS % (AUTO) 0.1 % (0.9-2.9); HEMATOCRIT 38.7 % (42.0-54.0); HEMOGLOBIN 12.9 g/dL (13.5-18.0); LYMPHOCYTES # (AUTO) 1.2 X10^3/uL (1.3-2.9); LYMPHOCYTES % (AUTO) 6.6 % (21.0-51.0); MEAN CORPUSCULAR HEMOGLOBIN 31.5 pg (27.0-34.0); MEAN CORPUSCULAR HGB CONC 33.4 g/dL (33.0-35.0); MEAN CORPUSCULAR VOLUME 94.4 fL (80.0-100.0); MEAN PLATELET VOLUME 7.9 fL (7.4-11.0); MONOCYTES # (AUTO) 1.9 x10^3/uL (0.3-0.8); MONOCYTES % (AUTO) 10.7 % (0.0-13.0); NEUTROPHILS # (AUTO) 14.8 x10^3/uL (2.2-4.8); NEUTROPHILS % (AUTO) 82.5 % (42.0-75.0); PLATELET COUNT 325 X10^3/uL (150.0-450.0); RED CELL DISTRIBUTION WIDTH 13.8 % (11.6-16.5); WHITE BLOOD COUNT 17.9 X10^3/uL (3.6-10.0)
[2024-07-09 14:35] LABS: BACTERIA,URINE TRACE /HPF (NEGATIVE); HYALINE CASTS, URINE FEW /LPF (NEGATIVE); RBC,URINE NONE SEEN /HPF (0-3); SQUAMOUS EPITHELIAL CELL,UR RARE /HPF (NEGATIVE)
[2024-07-09] MEDS: ZESTRIL TAB 10 MG PO SCH (20:55)
[2024-07-09] MEDS: COREG TAB 6.25 MG PO SCH (20:55)
[2024-07-10 06:21] LABS: BASOPHILS % (AUTO) 0 % (0.2-1.0); EOSINOPHILS % (AUTO) 0.1 % (0.9-2.9); HEMATOCRIT 31.4 % (42.0-54.0); HEMOGLOBIN 10.7 g/dL (13.5-18.0); LYMPHOCYTES # (AUTO) 0.9 X10^3/uL (1.3-2.9); MEAN CORPUSCULAR HEMOGLOBIN 31.8 pg (27.0-34.0); MEAN CORPUSCULAR HGB CONC 34.2 g/dL (33.0-35.0); MEAN CORPUSCULAR VOLUME 92.9 fL (80.0-100.0); MEAN PLATELET VOLUME 7.8 fL (7.4-11.0); MONOCYTES # (AUTO) 1.2 x10^3/uL (0.3-0.8); MONOCYTES % (AUTO) 9.5 % (0.0-13.0); NEUTROPHILS # (AUTO) 10.2 x10^3/uL (2.2-4.8); NEUTROPHILS % (AUTO) 83.4 % (42.0-75.0); PLATELET COUNT 240 X10^3/uL (150.0-450.0); RED BLOOD COUNT 3.38 X10^6/uL (4.7-6.0); WHITE BLOOD COUNT 12.2 X10^3/uL (3.6-10.0)
[2024-07-10 06:40] LABS: ALBUMIN 2.7 g/dL (3.4-5.0); CALCIUM 8.6 mg/dL (8.5-10.1); CARBON DIOXIDE 29.2 mmol/L (21-32); COR CA(FOR HYPOALB) 9.6 mg/dL (8.5-10.1); CREATININE 2.1 mg/dL (0.70-1.30); POTASSIUM 4.8 mmol/L (3.5-5.1)
[2024-07-10 07:08] LABS: INR 5.17 (0.8-1.3)
--- NOTE | 2024-07-10 08:37 | DR.H&P ---
H&P History & Physical for Day of: H&P Date: 07/09/24 Chief Complaint Chief Complaint: abdominal pain History of Present Illness History of Present Illness: Patient is 68 year old male with past medical history of CABG/mechanical aortic valve, Hypertension, Hypothyroidism, presenting with lower abdominal pain with bruising noted. States pain has been gradually worsening over the past few days. He reports no known trauma to the area. Currently, he reports a slight improvement in his condition. He is on Coumadin 2.5 mg daily for a mechanical aortic valve. His last dose of Coumadin was administered the previous night. He has reduced his intake of green vegetables. Labs/imaging: WBC 17.9, hemoglobin 12.9, platelets 325, Sodium 130, potassium 4.9, creatinine 1.82, glucose 157.INR 7.28, CT abdomen pelvis was obtained that revealed Large right-sided rectus abdominis/anterior abdominal wall hematoma measuring at least 13.4 x 12.5 x 6.8 cm. Diffuse but irregular thickening of the bladder wall which could be due to chronic outlet obstruction, cystitis, or neoplasm. Urologic consultation may be indicated in order to dete rmine if cystoscopy is indicated at this time. Will hold Coumadin at this time we will continue to monitor hemoglobin levels. Repeat INR in the morning. Restart home medications. Continue closely monitor and follow-up labs. Past Medical History Past Medical History: Coronary Artery Disease, Hypertension and Sleep Apnea Additional Medical History: A-FIB, THROAT CANCER Past Surgical History Surgical History: Abdominal Surgery, Angioplasty/Stents, CABG/Valve Surgery and Tonsillectomy Family History Family Medical History: [place] and Coronary Artery Disease Social History Does patient currently use any type of tobacco product: No Have you used tobacco products in the last 12 months: No Type of Tobacco Use: None Does any household member use tobacco: No Alcohol Use: Occasionally Drug Use: None Medications Home Medications: Home Medications Medication Instructions Recorded Confirmed Type amiodarone 200 mg tablet (Pacerone) 200 mg PO DAILY 06/08/20 07/09/24 History levothyroxine 50 mcg tablet 50 mcg PO DAILY 06/08/20 07/09/24 History azithromycin 250 mg tablet 250 mg PO DIRECTED 07/09/24 07/09/24 History carvedilol 6.25 mg tablet 6.25 mg PO BID 07/09/24 07/09/24 History lisinopril 10 mg tablet 10 mg PO BID 07/09/24 07/09/24 History montelukast 10 mg tablet 10 mg PO QDAY 07/09/24 07/09/24 History warfarin 2.5 mg tablet 2.5 mg PO QDAY 07/09/24 07/09/24 History Allergies Allergies Allergy/AdvReac Type Severity Reaction Status Date / Time No Known Drug Allergies Allergy Verified 06/08/20 16:03 Labs 07/10/24 05:58 07/10/24 05:58 Labs: Laboratory WBC 12.2 X10^3/uL (3.6-10.0) H 07/10/24 05:58 RBC 3.38 X10^6/uL (4.7-6.0) L 07/10/24 05:58 Hgb 10.7 g/dL (13.5-18.0) L D 07/10/24 05:58 Hct 31.4 % (42.0-54.0) L 07/10/24 05:58 MCV 92.9 fL (80.0-100.0) 07/10/24 05:58 MCH 31.8 pg (27.0-34.0) 07/10/24 05:58 MCHC 34.2 g/dL (33.0-35.0) 07/10/24 05:58 RDW 14.0 % (11.6-16.5) 07/10/24 05:58 Plt Count 240 X10^3/uL (150.0-450.0) 07/10/24 05:58 Plt Count Comment Adequate (ADEQUATE) 07/09/24 07:07 MPV 7.8 fL (7.4-11.0) 07/10/24 05:58 Neut % (Auto) 83.4 % (42.0-75.0) H 07/10/24 05:58 Lymph % (Auto) 7.0 % (21.0-51.0) L 07/10/24 05:58 [place] % (Auto) 9.5 % (0.0-13.0) 07/10/24 05:58 Eos % (Auto) 0.1 % (0.9-2.9) L 07/10/24 05:58 Baso % (Auto) 0 % (0.2-1.0) L 07/10/24 05:58 Neut # (Auto) 10.2 x10^3/uL (2.2-4.8) H 07/10/24 05:58 Lymph # (Auto) 0.9 X10^3/uL (1.3-2.9) L 07/10/24 05:58 [place] # (Auto) 1.2 x10^3/uL (0.3-0.8) H 07/10/24 05:58 Eos # (Auto) 0.0 x10^3/uL (0.0-0.2) 07/10/24 05:58 Baso # (Auto) 0.0 X10^3/uL (0.0-0.1) 07/10/24 05:58 Absolute Nucleated RBC 0.0 /100WBC 07/10/24 05:58 Total Counted 100 07/09/24 07:07 Neutrophils % (Manual) 87 % (39-76) H 07/09/24 07:07 Band Neutrophils % 4 % (0-10) 07/09/24 07:07 Lymphocytes % (Manual) 4 % (13-43) L 07/09/24 07:07 Monocytes % (Manual) 5 % (4-9) 07/09/24 07:07 Plt Morphology Comment Normal (NORMAL) 07/09/24 07:07 RBC Morphology Normal (NORMAL) 07/09/24 07:07 PT 45.6 SECONDS (11.8-14.3) 07/10/24 05:58 INR Target Range - 07/10/24 05:58 INR 5.17 (0.8-1.3) H* 07/10/24 05:58 APTT 45.9 SECONDS (22.9-36.5) H 07/09/24 07:07 PTT Comment - 07/09/24 07:07 Sodium 132 mmol/L (136-145) L 07/10/24 05:58 Corrected Sodium 132 mmol/L (136-145) L 07/10/24 05:58 Potassium 4.8 mmol/L (3.5-5.1) 07/10/24 05:58 Chloride 98 mmol/L (98-107) 07/10/24 05:58 Carbon Dioxide 29.2 mmol/L (21-32) 07/10/24 05:58 BUN 39 mg/dL (7-18) H 07/10/24 05:58 Creatinine 2.10 mg/dL (0.70-1.30) H 07/10/24 05:58 Est GFR (MDRD) Af Amer 40 (>60) L 07/10/24 05:58 Est GFR (MDRD) Non-Af 33 (>60) L 07/10/24 05:58 Glucose 112 mg/dL (65-99) H 07/10/24 05:58 Calcium 8.6 mg/dL (8.5-10.1) 07/10/24 05:58 Corrected Calcium 9.6 mg/dL (8.5-10.1) 07/10/24 05:58 Magnesium 2.3 mg/dL (2.0-2.9) 07/09/24 12:42 Total Bilirubin 0.50 mg/dL (0.2-1.0) 07/10/24 05:58 AST 22 Units/L (15-37) 07/10/24 05:58 ALT 21 Units/L (12-78) 07/10/24 05:58 Alkaline Phosphatase 51 Units/L (46-116) 07/10/24 05:58 Total Protein 6.0 g/dL (6.4-8.2) L 07/10/24 05:58 Albumin 2.7 g/dL (3.4-5.0) L 07/10/24 05:58 Globulin 3.3 g/dL (2.5-4.5) 07/10/24 05:58 Albumin/Globulin Ratio 0.8 Ratio (1.1-2.1) L 07/10/24 05:58 Specimen Type Clean catch urine 07/09/24 14:11 Urine Color Yellow (YELLOW) 07/09/24 14:11 Urine Appearance Clear (CLEAR) 07/09/24 14:11 Urine pH 5.0 (5.0 - 8.0) 07/09/24 14:11 Ur Specific [place] 1.025 (1.000-1.030) 07/09/24 14:11 Urine Protein 3+ (NEGATIVE) 07/09/24 14:11 Urine Glucose (UA) Negative (NEGATIVE) 07/09/24 14:11 Urine Ketones Negative (NEGATIVE) 07/09/24 14:11 Urine Blood Negative (NEGATIVE) 07/09/24 14:11 Urine Nitrite Negative (NEGATIVE) 07/09/24 14:11 Urine Bilirubin Negative (NEGATIVE) 07/09/24 14:11 Urine Urobilinogen Normal (NORMAL) 07/09/24 14:11 Ur Leukocyte Esterase Negative (NEGATIVE) 07/09/24 14:11 Urine RBC None seen /HPF (0-3) 07/09/24 14:11 Urine WBC 0-2 /HPF (0-5) 07/09/24 14:11 Ur Squamous Epith Cells Rare /HPF (NEGATIVE) 07/09/24 14:11 Urine Bacteria Trace /HPF (NEGATIVE) 07/09/24 14:11 Hyaline Casts Few /LPF (NEGATIVE) 07/09/24 14:11 Ur Culture Indicated? No/not indicated 07/09/24 14:11 Review of Systems Constitutional: No Symptoms Reported Eyes: No Symptoms Reported ENT: No Symptoms Reported Respiratory: No Symptoms Reported Cardiovascular: No Symptoms Reported Gastrointestinal: No Symptoms Reported Genitourinary: No Symptoms Reported Musculoskeletal: No Symptoms Reported Skin: Ecchymosis (lower abdomen) Neurological: No Symptoms Reported Physical Exam Vital Signs: Vital Signs Temperature 97.5 F Pulse Rate [Brachial] 57 Respiratory Rate 16 Blood Pressure [Left Arm] 95/50 O2 Sat by Pulse Oximetry 99 Oriented: Normal Eyes: Normal Ear: Normal Nose: Normal Throat: Normal Respiratory: Clear Throughout Cardiovascular: Normal : Normal Auscultation: Bowel Sounds: Normal Palpation: Normal Tenderness: Normal Skin: Ecchymosis (lower abdomen) Musculoskeletal: Normal Psychiatric: Normal Mood Description: Calm and Appropriate Affect: Normal Speech Pattern: Clear and Appropriate Assessment/Plan (1) Elevated INR: Status: Acute (2) Hyponatremia: Status: Acute (3) Abdominal wall hematoma: Qualifiers: Encounter type: sequela Qualified Code(s): S30.1XXS - Contusion of abdominal wall, sequela Status: Acute (4) Mechanical heart valve present: Status: Acute Review H&P Reviewed: Yes Patient was examined?: Yes
[2024-07-10] MEDS: CORDARONE TAB 200 MG PO SCH (08:59)
[2024-07-10] MEDS: SYNTHROID 50 mcg TAB PO SCH (08:59)
[2024-07-10 09:09] VITALS: BP 108/56; PULSE 58; RESP 18; TEMP 98.1; O2SAT 98
== END 2024-07-10 12:39 | disposition home or self-care (01) ==
LOC: ER 06:39 → U 06:39 → INTOOBSV 09:02 → OBSVTOIN 09:02 → MED/SURG 10:35
PROVIDERS: ADMIT Internal Medicine; ATTEND Internal Medicine
DX: R00.1 Bradycardia, unspecified; E03.8 Other specified hypothyroidism; I10 Essential (primary) hypertension; S30.1XXA Contusion of abdominal wall, initial encounter; R94.31 Abnormal electrocardiogram [ECG] [EKG]; Z79.01 Long term (current) use of anticoagulants; X58.XXXA Exposure to other specified factors, initial encounter; I25.10 Atherosclerotic heart disease of native coronary artery without angina pectoris; R10.84 Generalized abdominal pain; R79.1 Abnormal coagulation profile; Z95.2 Presence of prosthetic heart valve; K44.9 Diaphragmatic hernia without obstruction or gangrene; E87.1 Hypo-osmolality and hyponatremia